=== PATIENT | female | born 1980 | race Caucasian/White ===

== ENCOUNTER 2016-11-12 18:29 | Emergency (ER) | payer OTHER ==
[2016-11-12 18:36] VITALS: BP 105/61; PULSE 91; TEMP 97.3; BMI 30.1
--- NOTE | 2016-11-12 19:44 | PDOC ---
History of Present Illness - History of Present Illness Initial Comments: 11/12/16 20:40 The patient is a 36 year old female, A1, with a significant past medical history of anxiety, depression and hepatitis C, who presents to the emergency department with abdominal pain and vaginal discharge for a few weeks. She states she noticed the clear discharge a few weeks ago but thought it would resolve after her menstrual cycle. She reports completing her menstruation a few days ago, however, reports the discharge has persisted. She states the vaginal discharge is constant all day and foul smelling. She states she feels like she has an STD. She denies chest pain, shortness of breath, headache and dizziness. She denies fever, chills, nausea, vomit, diarrhea and constipation. She denies dysuria, frequency, urgency and hematuria. Allergies: penicillin <Maryam Ang - Last Filed: 11/12/16 20:40> <Margie Bird - Last Filed: 11/12/16 20:50> - General Chief Complaint: Pain Stated Complaint: PELVIC PAIN Time Seen by Provider: 11/12/16 19:09 Past History <Maryam Ang - Last Filed: 11/12/16 20:40> - Past Medical History Liver Disease: Yes (hep c) - Psycho/Social/Smoking Cessation Hx Anxiety: Yes Suicidal Ideation: No Smoking Status: Yes Smoking History: Current every day smoker Number of Cigarettes Smoked Daily: 10 Information on smoking cessation initiated: No <Margie Bird - Last Filed: 11/12/16 20:50> - Past Medical History Allergies/Adverse Reactions: Allergies Allergy/AdvReac Type Severity Reaction Status Date / Time Penicillins Allergy Verified 11/12/16 19:39 Home Medications: Ambulatory Orders Buprenorphine HCl/Naloxone HCl [Suboxone 8 mg-2 mg Sl Tablets] 1 each SL DAILY 11/12/16 Clonazepam [Klonopin] 3 mg PO DAILY 11/12/16 Doxycycline Monohydrate [Monodox] 100 mg PO Q12H #14 capsule 11/12/16 Gabapentin [Neurontin] 600 mg PO DAILY 11/12/16 Review of Systems - Review of Systems Able to Perform ROS?: Yes Comments:: 11/12/16 20:40 CONSTITUTIONAL: Absent: fever, chills, diaphoresis, generalized weakness, malaise, loss of appetite HEENT: Absent: rhinorrhea, nasal congestion, throat pain, throat swelling, difficulty swallowing, mouth swelling, ear pain, eye pain, visual Changes CARDIOVASCULAR: Absent: chest pain, syncope, palpitations, irregular heart rate, lightheadedness , peripheral edema RESPIRATORY: Absent: cough, shortness of breath, dyspnea with exertion, orthopnea, wheezing, stridor, hemoptysis GASTROINTESTINAL: Absent: abdominal pain, abdominal distension, nausea, vomiting, diarrhea, constipation, melena, hematochezia GENITOURINARY: (+) Vaginal discharge for 3 weeks. Absent: dysuria, frequency, urgency, hesitancy, hematuria, flank pain, genital pain MUSCULOSKELETAL: Absent: myalgia, arthralgia, joint swelling SKIN: Absent: rash, itching, pallor HEMATOLOGIC/IMMUNOLOGIC: Absent: easy bleeding, easy bruising, lymphadenopathy, frequent infections ENDOCRINE: Absent: unexplained weight gain, unexplained weight loss, heat intolerance, cold intolerance NEUROLOGIC: Absent: headache, focal weakness or paresthesias, dizziness, unsteady gait, seizure, mental status changes, bladder or bowel incontinence PSYCHIATRIC: Absent: anxiety, depression, suicidal or homicidal ideation, hallucinations. <Maryam Ang - Last Filed: 11/12/16 20:40> *Physical Exam - Vital Signs Last Vital Signs Temp Pulse Resp BP Pulse Ox 97.3 F L 91 H 18 105/61 98 11/12/16 18:32 11/12/16 18:32 11/12/16 18:32 11/12/16 18:32 11/12/16 18:32 - Physical Exam Comments: 11/12/16 20:41 GENERAL: Well developed, well nourished. Awake and alert. No acute distress. HEENT: Normocephalic, atraumatic. PERRLA, EOMI. No conjunctival pallor. Sclera are non- icteric. Moist mucous membranes. Oropharynx is clear. NECK: Supple. Full ROM. No JVD. Carotid pulses 2+ and symmetric, without bruits. No thyromegaly. No lymphadenopathy. CARDIOVASCULAR: Regular rate and rhythm. No murmurs, rubs, or gallops. Distal pulses are 2+ and symmetric. PULMONARY: No evidence of respiratory distress. Lungs clear to auscultation bilaterally. No wheezing, rales or rhonchi. ABDOMINAL: Soft. Non-tender. Non-distended. No rebound or guarding. No organomegaly. Normoactive bowel sounds. MUSCULOSKELETAL Normal range of motion at all joints. No bony deformities or tenderness. No CVA tenderness. EXTREMITIES: No cyanosis. No clubbing. No edema. No calf tenderness. SKIN: Warm and dry. Normal capillary refill. No rashes. No jaundice. NEUROLOGICAL: Alert, awake, appropriate. Cranial nerves 2-12 intact. Normoreflexic in the upper and lower extremities. Normal speech. Toes are down-going bilaterally. Gait is normal without ataxia. PSYCHIATRIC: Cooperative. Good eye contact. Appropriate mood and affect. GYNECOLOGIC EXAM: (+) foul smelling, yellow discharge. No tenderness. Cervix is closed. <Maryam Ang - Last Filed: 11/12/16 20:40> - Vital Signs Last Vital Signs Temp Pulse Resp BP Pulse Ox 97.3 F L 91 H 18 105/61 98 11/12/16 18:32 11/12/16 18:32 11/12/16 18:32 11/12/16 18:32 11/12/16 18:32 <Margie Bird - Last Filed: 11/12/16 20:50> ED Treatment Course - ADDITIONAL ORDERS Additional order review: Laboratory Results 11/12/16 11/12/16 19:55 19:55 Urine Color Yellow Urine Appearance Slcloudy Urine pH 5.0 Ur Specific [place] 1.032 Urine Protein Negative Urine Glucose (UA) Negative Urine Ketones Trace H Urine Blood 1+ H Urine Nitrite Negative Urine Bilirubin Negative Urine Urobilinogen Negative Ur Leukocyte Esterase 2+ H Urine RBC 6 Urine WBC 19 Ur Epithelial Cells Few Urine Bacteria Rare Urine Mucus Few Urine HCG, Qual Negative <Maryam Ang - Last Filed: 11/12/16 20:40> Medical Decision Making - Medical Decision Making 11/12/16 20:43 spoke to patient about her penicillin allergy. She did not have anaphylaxsis and recalls having some rash with penicillin as a child -will not give penicillin but cephalosporin reactions in pts with pcn allergies is very rare . Pt will receive cephalosporin 11/12/16 20:49 pt could not stay tp be observed so the rocephin was cancelled RX doxycycline sent to pharmacy <Margie Bird - Last Filed: 11/12/16 20:50> *DC/Admit/Observation/Transfer - Attestations Scribe Attestion: 11/12/16 20:42 Documentation prepared by Maryam Ang, acting as diagnostic medical sonographer for Margie Bird MD <Maryam Ang - Last Filed: 11/12/16 20:40> <Margie Bird - Last Filed: 11/12/16 20:50> Diagnosis at time of Disposition: Vaginal discharge - Discharge Dispostion Disposition: HOME Condition at time of disposition: Stable - Prescriptions Prescriptions: Doxycycline Monohydrate [Monodox] 100 mg PO Q12H #14 capsule - Referrals Referrals: Dorothy Ibarra [Primary Care Provider] - - Patient Instructions Printed Discharge Instructions: DI for [place]-vaginal Tears, DI for Vaginal Discharge
[2016-11-12 20:06] LABS: URINE APPEARANCE SLCLOUDY; URINE BILIRUBIN NEGATIVE (NEGATIVE); URINE COLOR YELLOW; URINE GLUCOSE (UA) NEGATIVE (NEGATIVE); URINE KETONE TRACE (NEGATIVE); URINE NITRITE NEGATIVE (NEGATIVE); URINE PROTEIN NEGATIVE (NEGATIVE); URINE UROBILINOGEN NEGATIVE E.U./dl (0.2-1.0)
[2016-11-12 20:08] LABS: URINE BLOOD 1+ (NEGATIVE); URINE LEUK ESTERASE 2+ (NEGATIVE)
[2016-11-12 20:13] LABS: URINE BACTERIA RARE /hpf (NONE SEEN); URINE MUCUS FEW; URINE RBC 6 /hpf (0-3); URINE WBC 19 /hpf (3-5)
[2016-11-12] MEDS ORDERED: AZITHROMYCIN 1 GM PACKET PO STA (20:38)
[2016-11-12] MEDS ORDERED: AZITHROMYCIN 250 MG TABLET (FP) ONE (20:41)
== END 2016-11-12 20:49 | disposition home or self-care (01) ==
LOC: JER 18:29
DX: N89.8 Other specified noninflammatory disorders of vagina (principal)
CPT/HCPCS: 36415; 81003; 81015; 84703; 87491; 87591; 99283-25

== ENCOUNTER 2017-03-03 19:42 | Inpatient (IN) | payer OTHER ==
--- NOTE | 2017-03-03 20:09 | HP ---
COWS - Scale Resting Pulse: 0= [place] 80 or Below Sweatin=Flushed/Facial Moisture Restless Observation: 3= Extraneous Movement Pupil Size: 1= Pupils >than Normal Bone or Joint Aches: 2= Severe Diffuse Aches Runny Nose/ Eye Tearin= Runny Nose/Eyes GI Upset > 30mins: 1= Stomach Cramp Tremor Observation: 1= Tremor [place], Not Seen Yawning Observation: 1= 1-2x During Session Anxiety or Irritability: 2=Irritable/Anxious Goose Flesh Skin: 3=Piloerection COWS Score: 18 CIWA Score - CIWA Score Nausea/Vomitin Muscle Tremors: 1-None Visible, but [place] Anxiety: 3 Agitation: 4-Moderately Restless Paroxysmal Sweats: 2 Orientation: 1-Uncertain about Date Tacttile Disturbances: 0-None Auditory Disturbances: 1-Very Mild Visual Disturbances: 2-Mild Sensitivity Headache: 3-Moderate CIWA-Ar Total Score: 19 Admission ROS BHS - HPI Chief Complaint: Withdrawal symptoms Allergies/Adverse Reactions: Allergies Allergy/AdvReac Type Severity Reaction Status Date / Time Fish Containing Products Allergy Verified 03/03/17 20:08 Penicillins Allergy Verified 11/12/16 19:39 History of Present Illness: 36 y.o. woman with a history of alcohol and heroin dependence is here seeking detox. She reports being clean for about 2 years but she relapsed 6 months ago. She was previously here for detox and rehab several years ago. Exam Limitations: No Limitations - Ebola screening Have you traveled outside of the country in the last 21 days: No (N) Have you had contact with anyone from an Ebola affected area: No Do you have a fever: No - Review of Systems Constitutional: Chills, Changes in sleep EENT: reports: Tearing, Nose Congestion Respiratory: reports: Shortness of Breath Cardiac: reports: No Symptoms Reported GI: reports: Diarrhea, Nausea : reports: No Symptoms Reported Musculoskeletal: reports: Back Pain, Neck Pain Integumentary: reports: No Symptoms Reported Neuro: reports: Headache Endocrine: reports: No Symptoms Reported Hematology: reports: No Symptoms Reported Psychiatric: reports: Anxious, Depressed, other Other Systems: Reviewed and Negative Patient History - Patient Medical History Hx Anemia: No Hx Asthma: No Hx Chronic Obstructive Pulmonary Disease (COPD): No Hx Cancer: No Hx Cardiac Disorders: No Hx Congestive Heart Failure: No Hx Hypertension: No Hx Hypercholesterolemia: No Hx Pacemaker: No HX Cerebrovascular Accident: Yes (2014 r/t drug overdose ) Hx Seizures: Yes (3 years ago ) Hx Dementia: No Hx Diabetes: No Hx Gastrointestinal Disorders: No Hx Liver Disease: Yes (Hep c-untreated ) Hx Genitourinary Disorders: No Hx Sexually Transmitted Disorders: Yes (Gonorrhea and chlamydia) Hx Renal Disease (ESRD): No Hx Thyroid Disease: No Hx Human Immunodeficiency Virus (HIV): No (Neg. ) Hx Hepatitis C: Yes (Untreated ) Hx Depression: Yes Hx Suicide Attempt: Yes (2014: overdose) Hx Bipolar Disorder: No Hx Schizophrenia: No - Patient Surgical History Past Surgical History: No - PPD History Previous Implant?: Yes Documented Results: Negative w/o proof PPD to be Administered?: Yes - Reproductive History Patient is a Female of Child Bearing Age (11 -55 yrs old): Yes Last Menstrual Period: 02/09/17 Patient : No - Smoking Cessation Smoking history: Current every day smoker Aproximately how many cigarettes per day: 10 Hx Chewing Tobacco Use: No Initiated information on smoking cessation: Yes 'Breaking Loose' booklet given: 03/03/17 - Substance & Tx. History Hx Alcohol Use: Yes Hx Substance Use: Yes Substance Use Type: Alcohol, Heroin Hx Substance Use Treatment: Yes (Detox: can't recall last admission. Rehab: 2007 ) - Substances Abused Heroin Route: Injection Frequency: Daily Amount used: 15 Age of first use: 19 Date of Last Use: 03/03/17 Alcohol Route: Oral Frequency: Daily Amount used: 1-2 bottles of wine Age of first use: 14 Date of Last Use: 03/03/17 Family Disease History - Family Disease History Family Disease History: Other: Father (Heroin dependent ) Admission Physical Exam BHS - Vital Signs Vital Signs: Last Vital Signs Temp Pulse Resp BP Pulse Ox 96.9 F L 68 16 99/65 03/03/17 20:29 03/03/17 20:29 03/03/17 20:29 03/03/17 20:29 - Physical General Appearance: Yes: Irritable, Anxious HEENTM: Yes: Hearing grossly Normal, Normal Voice Respiratory: Yes: Chest Non-Tender, Lungs Clear, Normal Breath Sounds, No Respiratory Distress, No Accessory Muscle Use Neck: Yes: No masses,lesions,Nodules, Trachea in good position Breast: Yes: Breast Exam Deferred Cardiology: Yes: Regular Rhythm, Regular Rate Abdominal: Yes: Flat, Soft Genitourinary: Yes: Other (DENIES COMPLAINT) Back: Yes: Normal Inspection Musculoskeletal: Yes: Gait Steady, Pelvis Stable, Back pain, Other (NECK PAIN) Extremities: Yes: Normal Inspection, Normal Range of Motion, Non-Tender Neurological: Yes: Alert, Normal Mood/Affect, Normal Response Integumentary: Yes: Dry, Warm, Track [place] Lymphatic: Yes: Within Normal Limits - Diagnostic (1) Alcohol dependence with uncomplicated withdrawal Current Visit: Yes Status: Chronic (2) Opioid dependence with withdrawal Current Visit: Yes Status: Chronic (3) Hepatitis C Current Visit: Yes Status: Chronic (4) Scoliosis Current Visit: Yes Status: Chronic (5) Plantar wart of both feet Current Visit: Yes Status: Acute Cleared for Admission [facility] - Detox or Rehab [facility] Level of Care: Medically Managed Detox Regimen/Protocol: Methadone/Librium BHS Breath Alcohol Content Breath Alcohol Content: 0 Vital Signs - Vital Signs Vital Signs Refused: No Temperature: 96.9 F Temperature Source: Oral Pulse Rate: 68 Respiratory Rate: 16 Blood Pressure: 99/65 BP Location: Left Arm Blood Pressure Position: Sitting - Height Height: 5 ft 3 in - Weight Weight: 185 lb Weight Measurement Method: Standing Scale Body Mass Index (BMI): 32.8 Urine Pregancy Test - Test Device Lot Number: [id number] Expiration Date: 08/23/18 - Control Horizontal Line in Upper Control Window?: Yes - Result Urine Test Results: Negative- NO Line Present Urine Drug Screen - Test Device Lot Number: [id number] Expiration Date: 08/23/18 - Control Is Test Valid: Yes - Results Urine Drug Screen Results: OPI-Opiates, MTD-Methadone, OXY-Oxycodone
[2017-03-03 20:29] VITALS: BMI 32.8
[2017-03-03] MEDS ORDERED: MENTHOL/PHENOL 1 EACH UD MM PRN (20:35)
[2017-03-03] MEDS ORDERED: METHADONE HCL 10 MG TABLET (FOR DETOX USE ONLY) PO ONE ×2 (20:35→23:00)
[2017-03-03] MEDS ORDERED: MAGNESIUM HYDROX 2400MG/30ML ORAL SUSPENSION 30 ML CUP PO PRN (20:35)
[2017-03-03] MEDS ORDERED: MAGNESIUM CITRATE 300 ML BOTTLE PO PRN (20:35)
[2017-03-03] MEDS ORDERED: NICOTINE POLACRILEX 2 MG GUM BC PRN (20:35)
[2017-03-03] MEDS ORDERED: LOPERAMIDE HCL 2 MG CAPSULE PO PRN (20:35)
[2017-03-03] MEDS ORDERED: P-EPHED 60MG/TRIPROLIDI 2.5MG TABLET PO PRN (20:35)
[2017-03-03] MEDS ORDERED: chlordiazePOXIDE HCL 25 MG CAPSULE PO PRN (20:35)
[2017-03-03] MEDS ORDERED: ACETAMINOPHEN 325 MG TABLET (FP) PO PRN (20:35)
[2017-03-03] MEDS ORDERED: IBUPROFEN 400 MG TABLET (FP) PO PRN (20:35)
[2017-03-03] MEDS ORDERED: hydrOXYzine PAMOATE 50 MG CAPSULE (FP) PO PRN (20:35)
[2017-03-03] MEDS ORDERED: diphenhydrAMINE HCL 50 MG CAPSULE PO PRN (20:35)
[2017-03-03] MEDS ORDERED: chlordiazePOXIDE HCL 25 MG CAPSULE PO ONE (20:35)
[2017-03-03] MEDS ORDERED: MAG HYDROX/AL HYDROX/SIMETH 30 ML UNIT-DOSE CUP PO PRN (20:35)
[2017-03-03] MEDS ORDERED: guaiFENesin/D-METHORPHAN HB 10 ML UNIT-DOSE CUPS PO PRN (20:35)
[2017-03-03] MEDS ORDERED: SALICYLIC ACID 1 APPLIC BOTTLE TP ONE (20:37)
[2017-03-03] MEDS: chlordiazePOXIDE HCL 25 MG CAPSULE PO SCH (22:36)
[2017-03-03] MEDS: THIAMINE HCL 100 MG TABLET (FP) PO SCH (22:41)
[2017-03-04] MEDS: chlordiazePOXIDE HCL 25 MG CAPSULE PO SCH ×4 (06:02→22:20)
[2017-03-04] MEDS ORDERED: METHADONE HCL 10 MG TABLET (FOR DETOX USE ONLY) PO SCH (10:00)
[2017-03-04 10:13] LABS: MCH 30.3 pg (25.7-33.7); MCHC 33.5 g/dl (32.0-36.0); MEAN CELL VOLUME 90.7 fl (80-96); MEAN PLT VOLUME 9.6 fl (7.5-11.1); PLATELET COUNT 189 K/MM3 (134-434); RDW 13.4 % (11.6-15.6); WHITE BLOOD COUNT 5.8 K/mm3 (4.0-10.0)
[2017-03-04 10:16] LABS: URINE APPEARANCE SLCLOUDY; URINE BILIRUBIN NEGATIVE (NEGATIVE); URINE BLOOD NEGATIVE (NEGATIVE); URINE COLOR YELLOW; URINE GLUCOSE (UA) NEGATIVE (NEGATIVE); URINE KETONE NEGATIVE (NEGATIVE); URINE NITRITE POSITIVE (NEGATIVE); URINE PROTEIN NEGATIVE (NEGATIVE); URINE UROBILINOGEN NEGATIVE E.U./dl (0.2-1.0)
[2017-03-04 10:22] LABS: URINE LEUK ESTERASE 1+ (NEGATIVE)
[2017-03-04 10:25] LABS: URINE RBC 1 /hpf (0-3); URINE WBC 16 /hpf (3-5)
[2017-03-04 10:26] LABS: URINE BACTERIA MANY /hpf (NONE SEEN); URINE MUCUS RARE
[2017-03-04] MEDS: PRENATAL VITAMINS W/ FOLIC ACID TABLET (FP) PO SCH (10:26)
[2017-03-04] MEDS: NICOTINE 14 MG/24 HOURS TOPICAL PATCH TD SCH (10:27)
[2017-03-04 10:28] LABS: ALBUMIN 3.1 g/dl (3.4-5.0); ANION GAP 8 (8-16); CO2 27 mmol/L (21-32); GLUCOSE,RANDOM 108 mg/dL (74-106)
[2017-03-04 10:32] LABS: ALK PHOS 63 U/L (45-117); BILIRUBIN,TOTAL 0.4 mg/dL (0.2-1.0); CREATININE 0.6 mg/dL (0.55-1.02); SGOT/AST 15 U/L (15-37); SGPT/ALT 16 U/L (12-78); TOT PROT 6.2 g/dl (6.4-8.2)
--- NOTE | 2017-03-04 11:43 | PN ---
[facility] CIWA - CIWA Score Nausea/Vomitin Muscle Tremors: 3 Anxiety: 3 Agitation: 3 Paroxysmal Sweats: 1-Minimal Palms Moist Orientation: 0-Oriented Tacttile Disturbances: 1-Very Mild Itch/Numbness Auditory Disturbances: 1-Very Mild Visual Disturbances: 1-Very Mild Sensitivity Headache: 2-Mild CIWA-Ar Total Score: 18 BHS COWS - Scale Resting Pulse: 1= [place] 81-100 Sweatin= Chills/Flushing Restless Observation: 3= Extraneous Movement Pupil Size: 1= Pupils >than Normal Bone or Joint Aches: 2= Severe Diffuse Aches Runny Nose/ Eye Tearin= Runny Nose/Eyes GI Upset > 30mins: 2= Nausea/Diarrhea Tremor Observation of Outstretched Hands: 2= Slight Tremor Visible Yawning Observation: 1= 1-2x During Session Anxiety or Irritability: 2=Irritable/Anxious Goose Flesh Skin: 0=Smooth Skin COWS Score: 17 S Progress Note (SOAP) Subjective: ALERT,IRRITABLE,ANXIOUS,INTERRUPTED SLEEP,TREMOR,PAIN IN THE BODY AND BACK Objective: 03/04/17 11:41 Vital Signs Temperature 98.2 F 03/04/17 10:52 Pulse Rate 85 03/04/17 10:52 Respiratory Rate 20 03/04/17 10:52 Blood Pressure 113/65 03/04/17 10:52 O2 Sat by Pulse Oximetry (%) EKG NSR,NORMAL ECG Laboratory Last Values WBC 5.8 K/mm3 (4.0-10.0) 03/04/17 08:00 RBC 4.25 M/mm3 (3.60-5.2) 03/04/17 08:00 Hgb 12.9 GM/dL (10.7-15.3) 03/04/17 08:00 Hct 38.6 % (32.4-45.2) 03/04/17 08:00 MCV 90.7 fl (80-96) 03/04/17 08:00 MCHC 33.5 g/dl (32.0-36.0) 03/04/17 08:00 RDW 13.4 % (11.6-15.6) 03/04/17 08:00 Plt Count 189 K/MM3 (134-434) 03/04/17 08:00 MPV 9.6 fl (7.5-11.1) 03/04/17 08:00 Sodium 141 mmol/L (136-145) 03/04/17 08:00 Potassium 3.7 mmol/L (3.5-5.1) 03/04/17 08:00 Chloride 106 mmol/L (98-107) 03/04/17 08:00 Carbon Dioxide 27 mmol/L (21-32) 03/04/17 08:00 Anion Gap 8 (8-16) 03/04/17 08:00 BUN 7 mg/dL (7-18) D 03/04/17 08:00 Creatinine 0.6 mg/dL (0.55-1.02) 03/04/17 08:00 Creat Clearance w eGFR > 60 (>60) 03/04/17 08:00 Random Glucose 108 mg/dL (74-106) H D 03/04/17 08:00 Calcium 8.0 mg/dL (8.5-10.1) L 03/04/17 08:00 Total Bilirubin 0.4 mg/dL (0.2-1.0) D 03/04/17 08:00 AST 15 U/L (15-37) D 03/04/17 08:00 ALT 16 U/L (12-78) D 03/04/17 08:00 Alkaline Phosphatase 63 U/L (45-117) 03/04/17 08:00 Total Protein 6.2 g/dl (6.4-8.2) L 03/04/17 08:00 Albumin 3.1 g/dl (3.4-5.0) L 03/04/17 08:00 Urine Color Yellow 03/04/17 08:00 Urine Appearance Slcloudy 03/04/17 08:00 Urine pH 7.0 (5.0-8.0) D 03/04/17 08:00 Urine Protein Negative (NEGATIVE) 03/04/17 08:00 Urine Glucose (UA) Negative (NEGATIVE) 03/04/17 08:00 Urine Ketones Negative (NEGATIVE) 03/04/17 08:00 Urine Blood Negative (NEGATIVE) 03/04/17 08:00 Urine Nitrite Positive (NEGATIVE) 03/04/17 08:00 Urine Bilirubin Negative (NEGATIVE) 03/04/17 08:00 Urine Urobilinogen Negative E.U./dl (0.2-1.0) 03/04/17 08:00 Ur Leukocyte Esterase 1+ (NEGATIVE) H 03/04/17 08:00 Urine RBC 1 /hpf (0-3) 03/04/17 08:00 Urine WBC 16 /hpf (3-5) 03/04/17 08:00 Ur Epithelial Cells Moderate /hpf (FEW) 03/04/17 08:00 Urine Bacteria Many /hpf (NONE SEEN) 03/04/17 08:00 Urine Mucus Rare 03/04/17 08:00 Assessment: 03/04/17 11:42 WITHDRAWAL SYMPTOM Plan: CONTINUE DETOX
--- NOTE | 2017-03-04 15:44 | EKG ---
Test Reason : Blood Pressure : / mmHG Vent. Rate : 067 BPM Atrial Rate : 067 BPM P-R Int : 114 ms QRS Dur : 090 ms QT Int : 404 ms P-R-T Axes : 025 064 039 degrees QTc Int : 426 ms NORMAL SINUS RHYTHM NORMAL ECG WHEN COMPARED WITH ECG OF 25-APR-2011 13:25, NO SIGNIFICANT CHANGE WAS FOUND Confirmed by DEUCE MELENDEZ MD ([id number]) on 03/04/2017 3:44:24 PM Referred By: Confirmed By:DEUCE MELENDEZ MD
[2017-03-04] MEDS: THIAMINE HCL 100 MG TABLET (FP) PO SCH (22:20)
[2017-03-05] MEDS: chlordiazePOXIDE HCL 25 MG CAPSULE PO SCH ×3 (05:59→17:28)
[2017-03-05] MEDS ORDERED: ESCITALOPRAM OXALATE 20 MG TABLET (FP) PO SCH (10:00)
[2017-03-05] MEDS ORDERED: METHADONE HCL 5 MG TABLET (FOR DETOX USE ONLY) PO SCH (10:00)
[2017-03-05 10:12] VITALS: TEMP 98.1
[2017-03-05] MEDS: PRENATAL VITAMINS W/ FOLIC ACID TABLET (FP) PO SCH (10:47)
[2017-03-05] MEDS: NICOTINE 14 MG/24 HOURS TOPICAL PATCH TD SCH (10:48)
[2017-03-05] MEDS ORDERED: TRIMETHOBENZAMIDE HCL 300 MG CAPSULE PO PRN (11:06)
--- NOTE | 2017-03-05 11:06 | PN ---
[facility] CIWA - CIWA Score Nausea/Vomitin-No Nausea/No Vomiting Muscle Tremors: 4-Moderate,w/Arms Extend Anxiety: 3 Agitation: 4-Moderately Restless Paroxysmal Sweats: 3 Orientation: 0-Oriented Tacttile Disturbances: 0-None Auditory Disturbances: 0-None Visual Disturbances: 0-None Headache: 0-None Present CIWA-Ar Total Score: 14 BHS COWS - Scale Resting Pulse: 1= [place] 81-100 Sweatin=Flushed/Facial Moisture Restless Observation: 1= Difficult to Sit Still Pupil Size: 0= Normal to Room Light Bone or Joint Aches: 2= Severe Diffuse Aches Runny Nose/ Eye Tearin= Runny Nose/Eyes GI Upset > 30mins: 2= Nausea/Diarrhea Tremor Observation of Outstretched Hands: 2= Slight Tremor Visible Yawning Observation: 2= >3x During Session Anxiety or Irritability: 2=Irritable/Anxious Goose Flesh Skin: 0=Smooth Skin COWS Score: 16 S Progress Note (SOAP) Subjective: irritable agitation anxiety body aches muscle spasms sweats shakes nausea Objective: 03/05/17 11:03 Vital Signs Temperature 98.1 F 03/05/17 10:00 Pulse Rate 83 03/05/17 10:00 Respiratory Rate 16 03/05/17 10:00 Blood Pressure 119/72 03/05/17 10:00 O2 Sat by Pulse Oximetry (%) Laboratory Tests 03/04/17 03/04/17 03/04/17 08:00 08:00 08:00 WBC 5.8 RBC 4.25 Hgb 12.9 Hct 38.6 MCV 90.7 MCHC 33.5 RDW 13.4 Plt Count 189 MPV 9.6 Sodium 141 Potassium 3.7 Chloride 106 Carbon Dioxide 27 Anion Gap 8 BUN 7 D Creatinine 0.6 Creat Clearance w eGFR > 60 Random Glucose 108 H D Calcium 8.0 L Total Bilirubin 0.4 D AST 15 D ALT 16 D Alkaline Phosphatase 63 Total Protein 6.2 L Albumin 3.1 L Urine Color Urine Appearance Urine pH Ur Specific [place] Urine Protein Urine Glucose (UA) Urine Ketones Urine Blood Urine Nitrite Urine Bilirubin Urine Urobilinogen Ur Leukocyte Esterase Urine RBC Urine WBC Ur Epithelial Cells Urine Bacteria Urine Mucus RPR Titer Nonreactive 03/04/17 08:00 WBC RBC Hgb Hct MCV MCHC RDW Plt Count MPV Sodium Potassium Chloride Carbon Dioxide Anion Gap BUN Creatinine Creat Clearance w eGFR Random Glucose Calcium Total Bilirubin AST ALT Alkaline Phosphatase Total Protein Albumin Urine Color Yellow Urine Appearance Slcloudy Urine pH 7.0 D Ur Specific [place] 1.015 Urine Protein Negative Urine Glucose (UA) Negative Urine Ketones Negative Urine Blood Negative Urine Nitrite Positive Urine Bilirubin Negative Urine Urobilinogen Negative Ur Leukocyte Esterase 1+ H Urine RBC 1 Urine WBC 16 Ur Epithelial Cells Moderate Urine Bacteria Many Urine Mucus Rare RPR Titer awake/alert ambulating no acute distress Assessment: 03/05/17 11:05 withdrawal sx Plan: continue detox increase fluids flexiril prn motrin prn tigan prn
[2017-03-05] MEDS ORDERED: CYCLOBENZAPRINE HCL 10 MG TABLET (FP) PO PRN (11:07)
--- NOTE | 2017-03-05 11:53 | CONSULT ---
[facility] Psychiatric Consult - Data Date of interview: 03/05/17 Admission source: [facility] Identifying data: This is 36 years old female with psychiatric hospitalization history, intoxicated with: Alcohol, Opioids anf Nicotine Substance Abuse History: - Smoking Cessation. Smoking history: Current every day smoker. Aproximately how many cigarettes per day: 10. Hx Chewing Tobacco Use: No. Initiated information on smoking cessation: Yes. 'Breaking Loose' booklet given: 03/03/17. - Substance & Tx. History. Hx Alcohol Use: Yes. Hx Substance Use: Yes. Substance Use Type: Alcohol, Heroin. Hx Substance Use Treatment: Yes (Detox: can't recall last admission. Rehab: 2007). - Substances Abused. Heroin. Route: Injection. Frequency: Daily. Amount used: 15. Age of first use: 19. Date of Last Use: 03/03/17. Alcohol. Route: Oral. Frequency: Daily. Amount used: 1-2 bottles of wine. Age of first use: 14. Date of Last Use: 03/03/17 Medical History: HepC+, Scoliosis Psychiatric History: Patient reports history of depression with most recent psychiatric asmission at [facility] due to depression on 2017, reports taking prior to admsision: Lexapro 20mg poqd Physical/Sexual Abuse/Trauma History: Denies, unclear Additional Comment: Lexapro 20mg poqd Mental Status Exam - Mental Status Exam Alert and Oriented to: Person Cognitive Function: Fair Patient Appearance: Unkempt Mood: Sad Affect: Flat Patient Behavior: Sedated Speech Pattern: Delayed Voice Loudness: Mildly Soft/Quiet Thought Process: Circumstantial Thought Disorder: Being Controlled Hallucinations: Denies Suicidal Ideation: Denies Homicidal Ideation: Denies Insight/Judgement: Fair Sleep: Difficulty falling asleep Appetite: Weight loss Muscle strength/Tone: Mild Hypotonicity Gait/Station: Shuffling Additional Comments: Lexapro 20mg poqd Psychiatric Findings - Problem List ([place] 1, 2,3) (1) Alcohol dependence with uncomplicated withdrawal Current Visit: Yes Status: Chronic (2) Opioid dependence with withdrawal Current Visit: Yes Status: Chronic (3) Drug-induced mood disorder Current Visit: Yes Status: Acute - Initial Treatment Plan Initial Treatment Plan: Lexapro 20mg poqd
[2017-03-05 14:36] VITALS: BP 110/62; PULSE 78
--- NOTE | 2017-03-05 18:06 | PN ---
S Progress Note Note: patient did not want to continue treatment,seen by counselor,signed release ama, did not want to wait
--- NOTE | 2017-03-05 18:10 | DS ---
[facility] Detox Discharge Summary Admission Date: 03/03/17 Discharge Date: 03/06/17 - History Present History: Alcohol Dependence, Opioid Dependence Additional Comments: patient did not want to complete treatment,did not want to wait,seen by counselor,signed release ama Pertinent Past History: hepatitis c - Physical Exam Results Vital Signs: Vital Signs Temperature 98.1 F 03/05/17 14:35 Pulse Rate 78 03/05/17 14:35 Respiratory Rate 16 03/05/17 14:35 Blood Pressure 110/62 03/05/17 14:35 O2 Sat by Pulse Oximetry (%) Pertinent Admission Physical Exam Findings: withdrawal symptom - Medication Discharge Medications: Ambulatory Orders Clonazepam [Klonopin -] 1 mg PO TID 03/03/17 Escitalopram Oxalate [Lexapro -] 20 mg PO DAILY 03/03/17 Gabapentin [Neurontin -] 200 mg PO Q8H 03/03/17 Escitalopram Oxalate [Lexapro -] 20 mg PO DAILY #30 tablet 03/05/17 - AMA Did Patient Leave Against Medical Advice: Yes
[2017-03-05] MEDS ORDERED: cloNIDine HCL 0.1 MG TABLET PO ONE (18:15)
[2017-03-05] MEDS ORDERED: chlordiazePOXIDE 5 MG CAPSULE PO SCH (23:00)
[2017-03-06] MEDS ORDERED: chlordiazePOXIDE HCL 10 MG CAPSULE PO SCH (23:00)
[2017-03-07] MEDS ORDERED: METHADONE HCL 10 MG TABLET (FOR DETOX USE ONLY) PO SCH (10:00)
[2017-03-08] MEDS ORDERED: METHADONE HCL 5 MG TABLET (FOR DETOX USE ONLY) PO SCH (06:00)
== END 2017-03-05 18:28 | disposition left against medical advice (07) | DRG 770 ==
LOC: YASAS 19:42 → Y6N 20:02
PROVIDERS: ADMIT Internal Medicine; ATTEND Internal Medicine
PROC: HZ2ZZZZ Detoxification Services for Substance Abuse Treatment (ICD-10-PCS; principal; 2017-03-03)
DX: F11.23 Opioid dependence with withdrawal (principal); F10.230 Alcohol dependence with withdrawal, uncomplicated; F19.24 Other psychoactive substance dependence with psychoactive substance-induced mood disorder; B18.2 Chronic viral hepatitis C; M41.9 Scoliosis, unspecified; Z86.73 Personal history of transient ischemic attack (TIA), and cerebral infarction without residual deficits; Z86.69 Personal history of other diseases of the nervous system and sense organs; Z87.42 Personal history of other diseases of the female genital tract; Z91.5 Personal history of self-harm
CPT/HCPCS: 36415; 80053; 81003; 81015; 85027; 86593; 93005; 93010

== ENCOUNTER 2017-06-04 01:36 | Inpatient (IN) | payer OTHER ==
--- NOTE | 2017-06-04 01:58 | HP ---
COWS - Scale Resting Pulse: 1= [place] 81-100 Sweatin=Flushed/Facial Moisture Restless Observation: 1= Difficult to Sit Still Pupil Size: 1= Pupils >than Normal Bone or Joint Aches: 4=Acute Joint/Muscle Pain Runny Nose/ Eye Tearin= Nasal Congestion GI Upset > 30mins: 2= Nausea/Diarrhea Tremor Observation: 2= Slight Tremor Visible Yawning Observation: 0= None Anxiety or Irritability: 2=Irritable/Anxious Goose Flesh Skin: 0=Smooth Skin COWS Score: 16 CIWA Score - CIWA Score Nausea/Vomitin Muscle Tremors: 3 Anxiety: 4-Mod. Anxious/Guarded Agitation: 4-Moderately Restless Paroxysmal Sweats: 2 Orientation: 1-Uncertain about Date Tacttile Disturbances: 0-None Auditory Disturbances: 1-Very Mild Visual Disturbances: 0-None Headache: 4-Moderately Severe CIWA-Ar Total Score: 21 Admission ROS BHS - HPI Chief Complaint: C/O ALCHOLISM AND HEROIN ADDICTION; SEEKING DETOX TXMENT History of Present Illness: 36 Y.O FEMALE WITH ALCOHOLISM AND OPIOID DEPENDENCE ADMITTED FOR DETOX TXMENT. CLIENT IS KNOWN TO [facility]. LAST ADMISSION 02/2017 SIGNED OUT AMA. D/W CLIENT ABOUT ADHERENCE AND COMPLIANCE. CLIENT AGREES TO COMPLETE TXMENT AT THIS TIME. Exam Limitations: No Limitations - Ebola screening Have you traveled outside of the country in the last 21 days: No Have you had contact with anyone from an Ebola affected area: No Do you have a fever: No - Review of Systems Constitutional: Chills, Loss of Appetite, Malaise, Night Sweats EENT: reports: Nose Congestion Respiratory: reports: No Symptoms reported Cardiac: reports: No Symptoms Reported GI: reports: Nausea, Poor Appetite : reports: No Symptoms Reported Musculoskeletal: reports: Joint Pain Integumentary: reports: No Symptoms Reported Neuro: reports: No Symptoms reported Endocrine: reports: No Symptoms Reported Hematology: reports: No Symptoms Reported Psychiatric: reports: Anxious, Depressed Other Systems: Reviewed and Negative Patient History - Patient Medical History Hx Anemia: No Hx Asthma: No Hx Chronic Obstructive Pulmonary Disease (COPD): No Hx Cancer: No Hx Cardiac Disorders: No Hx Congestive Heart Failure: No Hx Hypertension: No Hx Hypercholesterolemia: No Hx Pacemaker: No HX Cerebrovascular Accident: Yes (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 ) Hx Hepatitis C: Yes (Untreated ) Hx Depression: Yes Hx Suicide Attempt: No (accidental overdose) Hx Bipolar Disorder: No Hx Schizophrenia: No - Patient Surgical History Past Surgical History: No Hx Neurologic Surgery: No Hx Cataract Extraction: No Hx Cardiac Surgery: No Hx Lung Surgery: No Hx Breast Surgery: No Hx Breast Biopsy: No Hx Abdominal Surgery: No Hx Appendectomy: No Hx Cholecystectomy: No Hx Genitourinary Surgery: No Hx Section: No Hx Orthopedic Surgery: No Anesthesia Reaction: No - PPD History Previous Implant?: Yes Documented Results: Negative w/proof Implanted On Prior [facility] Admission?: Yes Date: 03/05/17 Results: 0MM PPD to be Administered?: No - Reproductive History Patient is a Female of Child Bearing Age (11 -55 yrs old): Yes Last Menstrual Period: 05/23/17 Patient : No ([facility]) - Smoking Cessation Smoking history: Current every day smoker Have you smoked in the past 12 months: Yes Aproximately how many cigarettes per day: 10 Cigars Per Day: 0 Hx Chewing Tobacco Use: No Initiated information on smoking cessation: Yes 'Breaking Loose' booklet given: 06/04/17 - Substance & Tx. History Hx Alcohol Use: Yes Hx Substance Use: Yes Substance Use Type: Alcohol, Heroin Hx Substance Use Treatment: Yes ([facility]) - Substances Abused HEROIN Route: Injection Frequency: Daily Amount used: 1 BUNDLE Age of first use: 19 Date of Last Use: 06/03/17 WINE/ RUM Route: Oral Frequency: Daily Amount used: 4 CANS/1 PINT Age of first use: 14 Date of Last Use: 06/03/17 Family Disease History - Family Disease History Family Disease History: Other: Father (Heroin dependent ) Admission Physical Exam [facility] - Physical General Appearance: Yes: Appropriately Dressed, Mild Distress, Tremorous, Other (KNODDING OFF) HEENTM: Yes: EOMI, Normocephalic, Normal Voice, ALY, Pharynx Normal Respiratory: Yes: Chest Non-Tender, Lungs Clear, Normal Breath Sounds, No Respiratory Distress, No Accessory Muscle Use Neck: Yes: No masses,lesions,Nodules, Supple, Trachea in good position Breast: Yes: Breast Exam Deferred Cardiology: Yes: Regular Rhythm, S1, S2, Tachycardia Abdominal: Yes: Normal Bowel Sounds, Non Tender, Soft Genitourinary: Yes: Within Normal Limits Back: Yes: Normal Inspection Musculoskeletal: Yes: full range of Motion, Gait Steady Extremities: Yes: Normal Range of Motion, Non-Tender, Tremors Neurological: Yes: Fully Oriented, Motor Strength 5/5 Integumentary: Yes: Warm, Moist Lymphatic: Yes: Within Normal Limits - Diagnostic (1) Alcohol dependence with uncomplicated withdrawal Current Visit: Yes Status: Chronic (2) Opioid dependence with withdrawal Current Visit: Yes Status: Chronic (3) Nicotine dependence Current Visit: Yes Status: Chronic Qualifiers: Nicotine product type: cigarettes Substance use status: uncomplicated Qualified Code(s): F17.210 - Nicotine dependence, cigarettes, uncomplicated Cleared for Admission S - Detox or Rehab [facility] Level of Care: Medically Managed Detox Regimen/Protocol: Methadone/Librium BHS Breath Alcohol Content Breath Alcohol Content: 0 Vital Signs - Vital Signs Vital Signs Refused: No Temperature: 99.7 F Temperature Source: Oral Pulse Rate: 95 Respiratory Rate: 20 Blood Pressure: 92/52 BP Location: Left Arm Blood Pressure Position: Sitting - Height Height: 5 ft 3 in - Weight Weight: 78.471 kg Weight Measurement Method: Standing Scale Body Mass Index (BMI): 30.6 Urine Pregancy Test - Test Device Lot Number: [id number] Expiration Date: 12/22/18 - Control Horizontal Line in Upper Control Window?: Yes - Result Urine Test Results: Negative- NO Line Present Urine Drug Screen - Test Device Lot Number: [id number] Expiration Date: 02/21/19 - Control Is Test Valid: Yes - Results Drug Screen Negative: No Urine Drug Screen Results: OPI-Opiates
[2017-06-04 02:08] VITALS: BMI 30.6
[2017-06-04] MEDS ORDERED: MAGNESIUM HYDROX 2400MG/30ML ORAL SUSPENSION 30 ML CUP PO PRN (02:13)
[2017-06-04] MEDS ORDERED: P-EPHED 60MG/TRIPROLIDI 2.5MG TABLET PO PRN (02:13)
[2017-06-04] MEDS ORDERED: ACETAMINOPHEN 325 MG TABLET (FP) PO PRN (02:13)
[2017-06-04] MEDS ORDERED: NICOTINE POLACRILEX 2 MG GUM BC PRN (02:13)
[2017-06-04] MEDS ORDERED: METHADONE HCL 10 MG TABLET (FOR DETOX USE ONLY) PO ONE ×3 (02:13→22:00)
[2017-06-04] MEDS ORDERED: IBUPROFEN 400 MG TABLET (FP) PO PRN (02:13)
[2017-06-04] MEDS ORDERED: guaiFENesin/D-METHORPHAN HB 10 ML UNIT-DOSE CUPS PO PRN (02:13)
[2017-06-04] MEDS ORDERED: diphenhydrAMINE HCL 50 MG CAPSULE PO PRN (02:13)
[2017-06-04] MEDS ORDERED: MENTHOL/PHENOL 1 EACH UD MM PRN (02:13)
[2017-06-04] MEDS ORDERED: MAGNESIUM CITRATE 300 ML BOTTLE PO PRN (02:13)
[2017-06-04] MEDS ORDERED: chlordiazePOXIDE HCL 25 MG CAPSULE PO PRN (02:13)
[2017-06-04] MEDS ORDERED: LOPERAMIDE HCL 2 MG CAPSULE PO PRN (02:13)
[2017-06-04] MEDS ORDERED: MAG HYDROX/AL HYDROX/SIMETH 30 ML UNIT-DOSE CUP PO PRN (02:13)
[2017-06-04] MEDS: chlordiazePOXIDE HCL 25 MG CAPSULE PO SCH ×4 (06:15→22:17)
--- NOTE | 2017-06-04 08:34 | CONSULT ---
[facility] Psychiatric Consult - Data Date of interview: 06/04/17 Admission source: [facility] Identifying data: This is 36 years old female with psychiatic hospitalization history intoxicated with: Alcohol, Opioids and Nicotine Substance Abuse History: Smoking history: Current every day smoker. Have you smoked in the past 12 months: Yes. Aproximately how many cigarettes per day: 10. Cigars Per Day: 0. Hx Chewing Tobacco Use: No. Initiated information on smoking cessation: Yes. 'Breaking Loose' booklet given: 06/04/17. - Substance & Tx. History. Hx Alcohol Use: Yes. Hx Substance Use: Yes. Substance Use Type : Alcohol, Heroin. Hx Substance Use Treatment: Yes ([facility]). - Substances Abused. HEROIN. Route: Injection. Frequency: Daily. Amount used: 1 BUNDLE. Age of first use: 19. Date of Last Use: 06/03/17. WINE/ RUM. Route: Oral. Frequency: Daily. Amount used: 4 CANS/1 PINT. Age of first use: 14. Date of Last Use: 06/03/17 Medical History: HepC+, Scoliosis Psychiatric History: Brooke borrero reports history of anxiety and depression, reports most rceent psychiatrioc admission on 2017 at [facility] due to depression. Reports taking prior to admission: Gabapentin 600mg po tid. Wellbutrin XR 150mg poqd Physical/Sexual Abuse/Trauma History: Denies Additional Comment: Gabapentin 600mg po tid. Wellbutrin XR 150mg poqd Mental Status Exam - Mental Status Exam Alert and Oriented to: Person Cognitive Function: Fair Patient Appearance: Unkempt Mood: Sad Affect: Flat Patient Behavior: Sedated Speech Pattern: Delayed Voice Loudness: Mildly Soft/Quiet Thought Process: Circumstantial Thought Disorder: Being Controlled Hallucinations: Denies Suicidal Ideation: Denies Homicidal Ideation: Denies Insight/Judgement: Fair Sleep: Difficulty falling asleep Appetite: Fair Muscle strength/Tone: Mild Hypotonicity Gait/Station: Shuffling Additional Comments: Gabapentin 600mg po tid. Wellbutrin XR 150mg poqd Psychiatric Findings - Problem List ([place] 1, 2,3) (1) Alcohol dependence with uncomplicated withdrawal Current Visit: Yes Status: Chronic (2) Nicotine dependence Current Visit: Yes Status: Chronic Qualifiers: Nicotine product type: cigarettes Substance use status: uncomplicated Qualified Code(s): F17.210 - Nicotine dependence, cigarettes, uncomplicated (3) Opioid dependence with withdrawal Current Visit: Yes Status: Chronic (4) Drug-induced mood disorder Current Visit: No Status: Acute - Initial Treatment Plan Initial Treatment Plan: Gabapentin 600mg po tid. Wellbutrin XR 150mg poqd
[2017-06-04] MEDS ORDERED: ESCITALOPRAM OXALATE 20 MG TABLET (FP) PO SCH (10:00)
[2017-06-04] MEDS ORDERED: GABAPENTIN 400 MG CAPSULE (FP) PO SCH (10:00)
[2017-06-04 10:14] LABS: MCH 30.2 pg (25.7-33.7); MCHC 33.6 g/dl (32.0-36.0); MEAN CELL VOLUME 89.6 fl (80-96); MEAN PLT VOLUME 8.4 fl (7.5-11.1); PLATELET COUNT 212 K/MM3 (134-434); RDW 13.2 % (11.6-15.6); WHITE BLOOD COUNT 5.4 K/mm3 (4.0-10.0)
[2017-06-04 10:37] LABS: ALK PHOS 62 U/L (45-117); ANION GAP 8 (8-16); BILIRUBIN,TOTAL 0.6 mg/dL (0.2-1.0); CALCIUM 8.5 mg/dL (8.5-10.1); CO2 29 mmol/L (21-32); CREATININE 0.6 mg/dL (0.55-1.02); GLUCOSE,RANDOM 105 mg/dL (74-106); SGOT/AST 13 U/L (15-37); SGPT/ALT 15 U/L (12-78); TOT PROT 6.5 g/dl (6.4-8.2)
--- NOTE | 2017-06-04 11:16 | PN ---
S CIWA - CIWA Score Nausea/Vomitin-No Nausea/No Vomiting Muscle Tremors: 4-Moderate,w/Arms Extend Anxiety: 3 Agitation: 3 Paroxysmal Sweats: 3 Orientation: 0-Oriented Tacttile Disturbances: 0-None Auditory Disturbances: 0-None Visual Disturbances: 0-None Headache: 0-None Present CIWA-Ar Total Score: 13 BHS COWS - Scale Resting Pulse: 1= [place] 81-100 Sweatin=Flushed/Facial Moisture Restless Observation: 1= Difficult to Sit Still Pupil Size: 0= Normal to Room Light Bone or Joint Aches: 1= Mild Discomfort Runny Nose/ Eye Tearin= Runny Nose/Eyes GI Upset > 30mins: 0= None Tremor Observation of Outstretched Hands: 2= Slight Tremor Visible Yawning Observation: 2= >3x During Session Anxiety or Irritability: 1=Feels Anxious/Irritable Goose Flesh Skin: 0=Smooth Skin COWS Score: 12 S Progress Note (SOAP) Subjective: sweats tired interrupted sleep agitation body aches Objective: 06/04/17 11:15 Vital Signs Temperature 97.3 F L 06/04/17 10:00 Pulse Rate 88 06/04/17 10:00 Respiratory Rate 16 06/04/17 10:00 Blood Pressure 103/55 06/04/17 10:00 O2 Sat by Pulse Oximetry (%) Laboratory Tests 06/04/17 06/04/17 07:00 07:00 WBC 5.4 RBC 3.83 Hgb 11.6 D Hct 34.4 MCV 89.6 MCH 30.2 MCHC 33.6 RDW 13.2 Plt Count 212 MPV 8.4 D Sodium 138 Potassium 3.6 Chloride 101 Carbon Dioxide 29 Anion Gap 8 BUN 6 L Creatinine 0.6 Creat Clearance w eGFR > 60 Random Glucose 105 Calcium 8.5 Total Bilirubin 0.6 D AST 13 L ALT 15 Alkaline Phosphatase 62 Total Protein 6.5 Albumin 3.0 L rest of labs pending awake/alert ambulating no acute distress Assessment: 06/04/17 11:15 withdrawal sx Plan: continue detox increase fluids
[2017-06-04] MEDS: PRENATAL VITAMINS W/ FOLIC ACID TABLET (FP) PO SCH (12:59)
[2017-06-04] MEDS: GABAPENTIN 300 MG CAPSULE (FP) PO SCH ×2 (13:00→22:16)
[2017-06-04] MEDS: NICOTINE 14 MG/24 HOURS TOPICAL PATCH TD SCH (13:03)
[2017-06-04] MEDS: THIAMINE HCL 100 MG TABLET (FP) PO SCH (22:16)
--- NOTE | 2017-06-04 23:17 | EKG ---
Test Reason : Blood Pressure : / mmHG Vent. Rate : 085 BPM Atrial Rate : 085 BPM P-R Int : 100 ms QRS Dur : 086 ms QT Int : 354 ms P-R-T Axes : 020 067 048 degrees QTc Int : 421 ms SINUS RHYTHM WITH SHORT AL OTHERWISE NORMAL ECG WHEN COMPARED WITH ECG OF 03-MAR-2017 20:29, NO SIGNIFICANT CHANGE WAS FOUND Confirmed by CHIN OMER MD ([id number]) on 06/04/2017 11:17:01 PM Referred By: Confirmed By:CHIN OMER MD
[2017-06-05] MEDS: chlordiazePOXIDE HCL 25 MG CAPSULE PO SCH ×4 (06:36→22:05)
[2017-06-05] MEDS ORDERED: METHADONE HCL 5 MG TABLET (FOR DETOX USE ONLY) PO SCH (10:00)
[2017-06-05] MEDS: GABAPENTIN 300 MG CAPSULE (FP) PO SCH ×2 (10:30→22:05)
[2017-06-05] MEDS: PRENATAL VITAMINS W/ FOLIC ACID TABLET (FP) PO SCH (10:30)
[2017-06-05] MEDS: NICOTINE 14 MG/24 HOURS TOPICAL PATCH TD SCH (10:30)
--- NOTE | 2017-06-05 11:23 | PN ---
S CIWA - CIWA Score Nausea/Vomitin Muscle Tremors: 4-Moderate,w/Arms Extend Anxiety: 4-Mod. Anxious/Guarded Agitation: 4-Moderately Restless Paroxysmal Sweats: 3 Orientation: 0-Oriented Tacttile Disturbances: 0-None Auditory Disturbances: 0-None Visual Disturbances: 0-None Headache: 0-None Present CIWA-Ar Total Score: 18 BHS COWS - Scale Resting Pulse: 1= [place] 81-100 Sweatin= Chills/Flushing Restless Observation: 1= Difficult to Sit Still Pupil Size: 1= Pupils >than Normal Bone or Joint Aches: 1= Mild Discomfort Runny Nose/ Eye Tearin= Nasal Congestion GI Upset > 30mins: 2= Nausea/Diarrhea Tremor Observation of Outstretched Hands: 2= Slight Tremor Visible Yawning Observation: 1= 1-2x During Session Anxiety or Irritability: 2=Irritable/Anxious Goose Flesh Skin: 3=Piloerection COWS Score: 16 BHS Progress Note (SOAP) Subjective: nasuea, sweats, interrupted sleep, anxiety, tremors Objective: 06/05/17 11:22 Vital Signs - 8 hr 06/05/17 06/05/17 06/05/17 03:30 06:56 10:32 Temperature 98.2 F 98.1 F Pulse Rate 67 94 H Respiratory 18 18 18 Rate Blood Pressure 106/67 137/75 Laboratory Tests 06/04/17 06/04/17 06/04/17 07:00 07:00 07:00 WBC 5.4 RBC 3.83 Hgb 11.6 D Hct 34.4 MCV 89.6 MCH 30.2 MCHC 33.6 RDW 13.2 Plt Count 212 MPV 8.4 D u/a pending Sodium 138 Potassium 3.6 Chloride 101 Carbon Dioxide 29 Anion Gap 8 BUN 6 L Creatinine 0.6 Creat Clearance w eGFR > 60 Random Glucose 105 Calcium 8.5 Total Bilirubin 0.6 D AST 13 L ALT 15 Alkaline Phosphatase 62 Total Protein 6.5 Albumin 3.0 L RPR Titer Nonreactive u/a pending Assessment: 06/05/17 11:22 withdrawal sx Plan: cont detox, fluid, u/a
[2017-06-05 15:48] LABS: URINE APPEARANCE CLOUDY; URINE BILIRUBIN NEGATIVE (NEGATIVE); URINE BLOOD 1+ (NEGATIVE); URINE COLOR AMBER; URINE GLUCOSE (UA) NEGATIVE (NEGATIVE); URINE KETONE TRACE (NEGATIVE); URINE NITRITE POSITIVE (NEGATIVE); URINE PROTEIN NEGATIVE (NEGATIVE)
[2017-06-05 15:49] LABS: URINE LEUK ESTERASE 3+ (NEGATIVE)
[2017-06-05 17:19] LABS: CALCIUM OXALATE CRYSTALS FEW /hpf (NONE SEEN); URINE BACTERIA RARE /hpf (NONE SEEN); URINE MUCUS MANY; URINE RBC 7 /hpf (0-3); URINE WBC 81 /hpf (3-5)
[2017-06-05] MEDS: THIAMINE HCL 100 MG TABLET (FP) PO SCH (22:05)
[2017-06-06] MEDS: chlordiazePOXIDE 5 MG CAPSULE PO SCH ×2 (06:42→10:22)
[2017-06-06] MEDS ORDERED: METHADONE HCL 5 MG TABLET (FOR DETOX USE ONLY) PO SCH (10:00)
[2017-06-06] MEDS: PRENATAL VITAMINS W/ FOLIC ACID TABLET (FP) PO SCH (10:19)
[2017-06-06] MEDS: GABAPENTIN 300 MG CAPSULE (FP) PO SCH (10:22)
[2017-06-06] MEDS: NICOTINE 14 MG/24 HOURS TOPICAL PATCH TD SCH (10:24)
[2017-06-06 11:50] VITALS: BP 115/73; PULSE 93; TEMP 98.2
--- NOTE | 2017-06-06 11:51 | PN ---
BHS Progress Note Note: pt refused to complete detox. pt states she will go to a methadone program for maintenance. pt signed out AMA.
--- NOTE | 2017-06-06 11:52 | DS ---
[facility] Detox Discharge Summary Admission Date: 06/04/17 - History Present History: Alcohol Dependence, Opioid Dependence - Physical Exam Results Vital Signs: Vital Signs Temperature 98.2 F 06/06/17 10:00 Pulse Rate 93 H 06/06/17 10:00 Respiratory Rate 18 06/06/17 10:00 Blood Pressure 115/73 06/06/17 10:00 O2 Sat by Pulse Oximetry (%) - Medication Discharge Medications: Ambulatory Orders Clonazepam [Klonopin -] 1 mg PO TID 03/03/17 Escitalopram Oxalate [Lexapro -] 20 mg PO DAILY 03/03/17 Gabapentin [Neurontin -] 200 mg PO BID 03/03/17 Escitalopram Oxalate [Lexapro -] 20 mg PO DAILY #30 tablet 06/04/17 Gabapentin 300 mg PO BID 30 Days 06/04/17 - Diagnosis (1) Alcohol dependence with uncomplicated withdrawal Current Visit: Yes Status: Chronic (2) Nicotine dependence Current Visit: Yes Status: Chronic Qualifiers: Nicotine product type: cigarettes Substance use status: uncomplicated Qualified Code(s): F17.210 - Nicotine dependence, cigarettes, uncomplicated (3) Opioid dependence with withdrawal Current Visit: Yes Status: Chronic (4) Hepatitis C Current Visit: No Status: Chronic Qualifiers: Viral hepatitis chronicity: chronic Hepatic coma status: without hepatic coma Qualified Code(s): B18.2 - Chronic viral hepatitis C - AMA Did Patient Leave Against Medical Advice: Yes (going to a [facility] )
[2017-06-07] MEDS ORDERED: chlordiazePOXIDE HCL 10 MG CAPSULE PO SCH (05:00)
[2017-06-08] MEDS ORDERED: METHADONE HCL 10 MG TABLET (FOR DETOX USE ONLY) PO SCH (10:00)
[2017-06-09] MEDS ORDERED: METHADONE HCL 10 MG TABLET (FOR DETOX USE ONLY) PO SCH (06:00)
== END 2017-06-06 11:05 | disposition left against medical advice (07) | DRG 770 ==
LOC: YASAS 01:36 → Y6N 02:06
PROVIDERS: ADMIT Internal Medicine; ATTEND Internal Medicine
PROC: HZ2ZZZZ Detoxification Services for Substance Abuse Treatment (ICD-10-PCS; principal; 2017-06-04)
DX: F11.23 Opioid dependence with withdrawal (principal); F10.230 Alcohol dependence with withdrawal, uncomplicated; F17.210 Nicotine dependence, cigarettes, uncomplicated; F19.24 Other psychoactive substance dependence with psychoactive substance-induced mood disorder; B18.2 Chronic viral hepatitis C
CPT/HCPCS: 36415; 80053; 81003; 81015; 85027; 86593; 93005; 93010

== ENCOUNTER 2019-04-03 07:54 | Inpatient (IN) | payer OTHER ==
--- NOTE | 2019-04-03 08:19 | HP ---
Admitting History and Physical - Admission Chief Complaint: left hip osteoarthritis x years History of Present Illness: 38 year old female presents in regard to their left hip. Longstanding history of left hip osteoarthritis. Patient complains of pain, limited ROM, difficulty ambulating and difficulty completing ADLs. Patient has failed conservative treatment measures including PO medications, injections, exercise programs and activity modification. At this point, patient wishes to proceed with surgical intervention, a left total hip arthroplasty - MAKOplasty. History Source: Patient - Past Medical History SOCIAL ECONOMIST: Yes: Peripheral Neuropathy ...LMP: 05/23/17 Infectious Disease: Yes: Other (HEP C) Psych: Yes: Anxiety, Depression - Past Surgical History Additional Past Surgical History: See written history & physical. - Smoking History Smoking history: Current every day smoker Have you smoked in the past 12 months: Yes Aproximately how many cigarettes per day: 10 - Alcohol/Substance Use Hx Alcohol Use: Yes Home Medications - Allergies Allergies/Adverse Reactions: Allergies Allergy/AdvReac Type Severity Reaction Status Date / Time Fish Containing Products Allergy Intermediate Rash Verified 03/25/19 12:03 Penicillins Allergy Intermediate Rash Verified 03/25/19 12:04 - Home Medications Home Medications: Ambulatory Orders clonazePAM [Klonopin -] 1 mg PO TID 03/03/17 Escitalopram Oxalate [Lexapro -] 20 mg PO DAILY #30 tablet 06/04/17 Buprenorphine HCl [Subutex -] 8 mg SL BID 03/25/19 Family Disease History - Family Disease History Family Disease History: Other: Father (Heroin dependent ) Review of Systems - Review of Systems Musculoskeletal: reports: Decreased ROM (left hip), Joint Pain (left hip) Physical Examination Constitutional: Yes: Well Nourished, No Distress Eyes: Yes: Conjunctiva Clear HENT: Yes: Atraumatic Neck: Yes: Supple Cardiovascular: Yes: Regular Rate and Rhythm Respiratory: Yes: Regular Gastrointestinal: Yes: Soft ...Rectal Exam: Yes: Deferred Musculoskeletal: Yes: Joint Stiffness (left hip) Assessment/Plan 38 year old female presents in regard to their left hip. Longstanding history of left hip osteoarthritis. Patient complains of pain, limited ROM, difficulty ambulating and difficulty completing ADLs. Patient has failed conservative treatment measures including PO medications, injections, exercise programs and activity modification. At this point, patient wishes to proceed with surgical intervention, a left total hip arthroplasty - MAKOplasty. Pros, cons, risks benefits and alternatives of a left total hip arthroplasty, MAKOplasty were discussed with the patient at length. Patient confirms their understanding and consents to proceed with a left total hip arthroplasty, MAKOplasty.
[2019-04-03] MEDS ORDERED: PANTOPRAZOLE 40 MG TABLET (FP) ONE (08:35)
[2019-04-03] MEDS ORDERED: oxyCODONE HCL 10 MG SUSTAINED ACTING TABLET ONE (08:35)
[2019-04-03] MEDS ORDERED: GABAPENTIN 300 MG CAPSULE (FP) ONE (08:36)
[2019-04-03] MEDS ORDERED: CELECOXIB 200 MG CAPSULE ONE (08:36)
[2019-04-03 08:54] VITALS: BMI 30.2
[2019-04-03] MEDS ORDERED: MIDAZOLAM HCL 2 MG/2 ML SINGLE DOSE VIAL ONE ×2 (09:15→10:22)
[2019-04-03] MEDS ORDERED: BUPIVACAINE HCL/PF (5 MG/ML) 30 ML VIAL IJ ONE (09:16)
[2019-04-03] MEDS ORDERED: LIDOCAINE 1% P/F 10 MG/ML VIAL ONE (09:19)
[2019-04-03] MEDS ORDERED: PROPOFOL 20 ML ONE ×7 (10:19)
[2019-04-03] MEDS ORDERED: ceFAZolin SODIUM 1 GM VIAL ONE ×2 (10:36)
[2019-04-03] MEDS ORDERED: PANTOPRAZOLE 40 MG TABLET (FP) PO ONE (11:00)
[2019-04-03] MEDS ORDERED: GABAPENTIN 300 MG CAPSULE (FP) PO ONE (11:00)
[2019-04-03] MEDS ORDERED: TRANEXAMIC ACID 1000 MG/10 ML VIAL IVPUSH ONE ×2 (11:00→12:07)
[2019-04-03] MEDS ORDERED: oxyCODONE HCL 10 MG SUSTAINED ACTING TABLET PO ONE (11:00)
[2019-04-03] MEDS ORDERED: ROPIVICAINE 0.2%/MORPH PF/KETOROLAC - 51ML DISP.SYRINGE IA ONE ×3 (11:00→12:48)
[2019-04-03] MEDS ORDERED: CELECOXIB 200 MG CAPSULE PO ONE (11:00)
[2019-04-03] MEDS ORDERED: CEFAZOLIN 2 GM in DEXTROSE 5%-WATER - 50 ML IVPB ONE (11:00)
[2019-04-03] MEDS ORDERED: VANCOMYCIN 1,000 MG VIAL (RESTRICTED TO ID ONLY) IVPB ONE (12:07)
[2019-04-03] MEDS ORDERED: PROMETHAZINE HCL 25 MG/1 ML VIAL IVPUSH PRN (13:13)
[2019-04-03] MEDS ORDERED: ONDANSETRON 4 MG/2 ML VIAL IVPUSH PRN ×2 (13:13→13:59)
[2019-04-03] MEDS ORDERED: ACETAMINOPHEN 1000 MG/100 ML VIAL (NON FORMULARY) IVPB ONE ×2 (13:13→14:07)
[2019-04-03] MEDS ORDERED: KETOROLAC TROMETHAMINE 30 MG/1 ML VIAL ONE (13:24)
[2019-04-03] MEDS: KETOROLAC TROMETHAMINE 30 MG/1 ML VIAL IVPUSH SCH ×2 (13:35→20:24)
[2019-04-03] MEDS ORDERED: traMADol HCL 50 MG TABLET ONE (13:47)
[2019-04-03] MEDS: traMADol HCL 50 MG TABLET PO SCH ×2 (13:50→20:23)
[2019-04-03] MEDS ORDERED: MAGNESIUM HYDROX 2400MG/30ML ORAL SUSPENSION 30 ML CUP PO PRN (13:59)
[2019-04-03] MEDS ORDERED: MAG HYDROX/AL HYDROX/SIMETH 30 ML UNIT-DOSE CUP PO PRN (13:59)
[2019-04-03] MEDS ORDERED: LACTATED RINGERS SOLUTION 1,000 ML IV SCH (14:00)
[2019-04-03] MEDS: oxyCODONE HCL 5 MG TABLET PO PRN ×3 (14:15→22:30)
--- NOTE | 2019-04-03 14:24 | OP ---
Operative Note - Note: Operative Date: 04/03/19 Pre-Operative Diagnosis: Left hip AVN/OA Operation: left ANATOLY Post-Operative Diagnosis: Same as Pre-op Surgeon: Titi Bahena Tool Drawing Checker: Rosa Maria Reyes Anesthesia: Spinal Estimated Blood Loss (mls): 200
[2019-04-03] MEDS ORDERED: oxyCODONE HCL 5 MG TABLET PO PRN (14:26)
[2019-04-03] MEDS: clonazePAM 0.5 MG TABLET PO SCH ×2 (14:50→22:29)
--- NOTE | 2019-04-03 15:14 | SPEC ---
DATE OF OPERATION: 04/03/2019 PREOPERATIVE DIAGNOSIS: Left hip osteoarthritis. POSTOPERATIVE DIAGNOSIS: Left hip osteoarthritis. PROCEDURE: Left total hip replacement with MAKOplasty robotic navigation. ATTENDING: Gema Dave MD EMBEDDED SOFTWARE DEVELOPMENT ENGINEER: JOHANNA Trivedi ANESTHESIA: Spinal plus sedation. ESTIMATED BLOOD LOSS: 200 mL. COMPLICATIONS: None. DISPOSITION: The patient was transferred to the PACU in stable condition. IMPLANTS USED: [place] Accolade II size 4 femoral component, Maribel Trident II 54-mm acetabular component, with 30 and 20 mm acetabular screws, MDM bipolar head ball and liner with inner ceramic 0 mm offset head ball. INDICATIONS: This is a 38-year-old female who presented to the office complaining of severe left hip pain. She was seen and examined by Dr. 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 This was late stage and had led to collapse of the femoral head, which then lost its normal spherical shape, leading to severe arthritis. The patient had been treated by another orthopedist with conservative measures but continued to have severe pain and ambulatory dysfunction. She was therefore indicated for a left total hip replacement. The risks, benefits and alternatives to the procedure were explained to the patient in great detail and she elected to proceed with surgery. On the day of surgery, the patient was taken to the operating room and placed on the OR table. Spinal anesthesia was administered by the anesthesiologist. The patient was then positioned in the lateral decubitus position on the table and all bony prominences were padded. An axillary roll was placed. The operative hip was then prepped and draped in the usual sterile fashion and intravenous antibiotics were given for infection prophylaxis. A surgical time-out was then performed with the team, and the patients identity, procedure, side, availability of implants, and the administration of antibiotics were confirmed. An approximately 15-cm longitudinal incision was made through the skin centered on the greater trochanter of the hip. This dissection was carried down through the subcutaneous tissues to the deep fascia. This fascia was then incised and a Cobra was placed around the inferior femoral neck. Electrocautery was used to reflect the anterior 40% of the gluteus medius and minimus starting at the musculotendinous junction and leaving a cuff for closure. This was reflected to reveal the capsule of the hip joint. An anterior capsulectomy was performed and the femoral head and neck were visualized. Grade 4 changes were noted diffusely throughout the joint. At this point, three small stab incisions were made superior to the main incision along the iliac crest. Three self-drilling Steinmann pins were then placed and the [employer] pelvic array was attached. Reference points on the limb were then entered into the robotic device and the limb length deficiency, offset, and femoral neck resection level were then calculated by the software. The hip was then dislocated with traction and external rotation. An oscillating saw was used to make the femoral neck cut at the level previously templated, and the femoral head was removed. Attention was then turned to the acetabulum. Retractors were then placed around the acetabulum and the labrum was removed. An acetabular checkpoint pin and the [employer] software were used to register the contours of the acetabulum. The acetabulum was then reamed in a single stage to the preoperatively templated size using the [employer] robotic arm. The appropriately sized cup was then impacted and had solid fixation as well as the preset inclination and version of 40 and 20 degrees, respectively. A polyethylene liner was then placed in the cup. Attention was then turned back to the femur, which was externally rotated for improved visualization. A femoral neck elevator was used to present the femoral neck cut, a box osteotome was used to enter the femoral canal, and a canal finder was used to go down the femoral shaft. The Srinivasa broaches were used sequentially until the optimal scratch fit was achieved. This correlated with the preoperatively templated size. From here, several different offset head and neck configurations were tested until excellent stability and length were obtained. These measurements were quantified using the [employer] software. All trial components were then removed, the femur was copiously irrigated, and the final components were placed. Leg length and stability were checked again and found to be excellent. Irrigation was performed again. Wound closure was started by repairing the abductor muscles with a no. 2 FiberWire stitch in a Krackow configuration passed through bone tunnels in the greater trochanter and tied over a bony bridge. This repair was then reinforced with a 0 V-Loc 180 barbed suture. Next, no. 1 Polysorb and 0 V-Loc 180 were used to close the fascia. The deep subcutaneous tissue was closed with no. 1 Polysorb sutures, and 2-0 Polysorb was used for the superficial subcutaneous tissue. The skin was closed using both 3-0 V-Loc 90 suture in a running subcuticular fashion and SwiftSet skin adhesive. The Srinivasa array and pins were removed from the iliac crest and the stab incision sites were irrigated and closed with 4-0 Polysorb sutures and SwiftSet skin adhesive. Once this was completed, a sterile dressing was applied. The patient was then awakened and taken to the PACU in stable condition. ADDENDUM: After final implants were placed, a 3-minute dilute Betadine lavage was performed. Following this, the wound was again thoroughly irrigated with normal saline containing Ancef, and wound closure was begun. GEMA DAVE M.D. [id number]
[2019-04-03] MEDS: CEFAZOLIN 2 GM/D5W 2 GM/50 ML ML IVPB SCH (17:36)
[2019-04-03] MEDS ORDERED: DEXAMETHASONE SOD PHOSPHATE 10 MG/1 ML VIAL IVPB ONE (20:00)
[2019-04-03] MEDS: ACETAMINOPHEN 325 MG TABLET (FP) PO SCH (20:25)
[2019-04-03] MEDS ORDERED: BUPRENORPHINE HCL 8 MG TAB.SUBL SL SCH (22:00)
[2019-04-03] MEDS ORDERED: BUPRENORPHINE HCL 8 MG SL SCH (22:00)
[2019-04-03] MEDS: CELECOXIB 200 MG CAPSULE PO SCH (22:28)
[2019-04-03] MEDS: GABAPENTIN 300 MG CAPSULE (FP) PO SCH (22:29)
[2019-04-03] MEDS: oxyCODONE HCL 10 MG SUSTAINED ACTING TABLET PO SCH (22:30)
[2019-04-03] MEDS: SENNOSIDES/DOCUSATE COMBO (SENNA PLUS) TABLET (UD) PO SCH (22:30)
[2019-04-03] MEDS: ASCORBIC ACID 500 MG TABLET (FP) PO SCH (22:30)
[2019-04-04] MEDS: traMADol HCL 50 MG TABLET PO SCH ×2 (01:36→08:48)
[2019-04-04] MEDS: ACETAMINOPHEN 325 MG TABLET (FP) PO SCH ×4 (01:37→20:44)
[2019-04-04] MEDS: KETOROLAC TROMETHAMINE 30 MG/1 ML VIAL IVPUSH SCH ×2 (01:37→08:50)
[2019-04-04] MEDS: CEFAZOLIN 2 GM/D5W 2 GM/50 ML ML IVPB SCH ×2 (02:00→16:23)
[2019-04-04 08:02] LABS: CALCIUM 8.7 mg/dl (8.5-10); CREATININE 0.7 mg/dl (0.55-1.3); POTASSIUM 5.1 mmol/L (3.5-5.1)
[2019-04-04 08:04] LABS: HEMATOCRIT 35.8 % (32.4-45.2); HEMOGLOBIN 12.3 GM/dl (10.7-15.3); MCH 30.4 pg (25.7-33.7); MCHC 34.2 g/dl (32.0-36.0); MEAN CELL VOLUME 88.8 fl (80-96); MEAN PLT VOLUME 10.2 fl (7.5-11.1); PLATELET COUNT 188 K/MM3 (134-434); RBC 4.03 M/mm3 (3.60-5.2); RDW 12.9 % (11.6-15.6); WHITE BLOOD COUNT 6.8 K/mm3 (4.0-10.8)
[2019-04-04] MEDS: ASPIRIN 325 MG TABLET PO SCH (08:48)
[2019-04-04] MEDS: clonazePAM 0.5 MG TABLET PO SCH ×3 (09:06→22:01)
[2019-04-04] MEDS: ASCORBIC ACID 500 MG TABLET (FP) PO SCH ×2 (09:44→22:02)
[2019-04-04] MEDS: ESCITALOPRAM OXALATE 20 MG TABLET (FP) PO SCH (09:45)
[2019-04-04] MEDS: CELECOXIB 200 MG CAPSULE PO SCH ×2 (09:45→22:01)
[2019-04-04] MEDS: GABAPENTIN 300 MG CAPSULE (FP) PO SCH ×2 (09:45→22:03)
[2019-04-04] MEDS: PANTOPRAZOLE 40 MG TABLET (FP) PO SCH (09:45)
[2019-04-04] MEDS: SENNOSIDES/DOCUSATE COMBO (SENNA PLUS) TABLET (UD) PO SCH ×2 (09:45→22:02)
[2019-04-04] MEDS: MULTIVITAMINS (DAILY MVI) TABLET (FP) PO SCH (09:45)
[2019-04-04] MEDS: oxyCODONE HCL 10 MG SUSTAINED ACTING TABLET PO SCH ×2 (09:46→22:02)
[2019-04-04] MEDS ORDERED: oxyCODONE HCL 5 MG TABLET PO PRN (11:07)
--- NOTE | 2019-04-04 11:14 | PN ---
Progress Note, Physician Chief Complaint: s/p left total hip replacement under spinal anesthesia History of Present Illness: post op day one, paravertebral block for post op pain control. - Current Medication List Current Medications: Active Medications Acetaminophen (Tylenol -) 650 mg PO Q6H [facility] Stop: 04/06/19 19:59 Last Admin: 04/04/19 08:50 Dose: 650 mg Al Hydroxide/Mg Hydroxide (Mylanta Oral Suspension -) 30 ml PO Q4H PRN PRN Reason: DYSPEPSIA Ascorbic Acid (Vitamin C -) 500 mg PO BID [facility] Last Admin: 04/04/19 09:44 Dose: 500 mg Aspirin (Asa -) 325 mg PO DAILY@0800 [facility] Last Admin: 04/04/19 08:48 Dose: 325 mg Celecoxib (Celebrex -) 200 mg PO BID [facility] Last Admin: 04/04/19 09:45 Dose: 200 mg Clonazepam (Klonopin -) 1 mg PO TID [facility] Last Admin: 04/04/19 09:06 Dose: 1 mg Escitalopram Oxalate (Lexapro -) 20 mg PO DAILY [facility] Last Admin: 04/04/19 09:45 Dose: 20 mg Gabapentin (Neurontin -) 300 mg PO BID [facility] Stop: 04/06/19 21:59 Last Admin: 04/04/19 09:45 Dose: 300 mg Cefazolin Sodium/Dextrose (Ancef 2 Gm Premixed Ivpb -) 2 gm in 50 mls @ 100 mls /hr IVPB Q8H-IV [facility] Stop: 04/04/19 17:59 Last Admin: 04/04/19 02:00 Dose: 100 mls/hr Magnesium Hydroxide (Milk Of Magnesia -) 30 ml PO PRN PRN PRN Reason: CONSTIPATION Multivitamins/Minerals/Vitamin C (Tab-A-Vit -) 1 tab PO DAILY [facility] Last Admin: 04/04/19 09:45 Dose: 1 tab Ondansetron HCl (Zofran Injection) 4 mg IVPUSH Q6H PRN PRN Reason: NAUSEA Oxycodone HCl (Roxicodone -) 20 mg PO Q3H PRN PRN Reason: PAIN LEVEL 6-10 Oxycodone HCl (Roxicodone -) 10 mg PO Q3H PRN PRN Reason: PAIN LEVEL 1-5 Oxycodone HCl (Oxycontin -) 20 mg PO BID [facility] Stop: 04/07/19 11:07 Pantoprazole Sodium (Protonix -) 40 mg PO DAILY [facility] Last Admin: 04/04/19 09:45 Dose: 40 mg Senna/Docusate Sodium (Pericolace -) 2 tablet PO BID [facility] Last Admin: 04/04/19 09:45 Dose: 2 tablet - Objective Vital Signs: Vital Signs Temperature 98.3 F 04/04/19 10:00 Pulse Rate 78 04/04/19 10:00 Respiratory Rate 16 04/04/19 10:00 Blood Pressure 93/44 L 04/04/19 10:00 O2 Sat by Pulse Oximetry (%) 95 04/04/19 10:00 Constitutional: Yes: Well Nourished Cardiovascular: Yes: WNL Respiratory: Yes: WNL Gastrointestinal: Yes: WNL Labs: CBC, BMP 04/04/19 07:21 04/04/19 07:21 Assessment/Plan Patient expressed concern over anesthetic stating she felt she was undermedicated for the block and spinal. I explained to her the increase level of difficulty and risk when a patient is oversedated for the block and spinal. She expressed her pain control is not adequate. With her history of suboxone use , pain management would prove difficult. Will double the doses of opiod analgesics and add adjunct anagesics. Otherwise, dept of anesthesia will sign off care at this time.
[2019-04-04] MEDS: diazePAM 5 MG TABLET PO PRN ×2 (12:43→18:29)
[2019-04-04] MEDS: oxyCODONE HCL 5 MG TABLET PO PRN ×3 (12:49→20:44)
[2019-04-05] MEDS: ACETAMINOPHEN 325 MG TABLET (FP) PO SCH ×2 (03:40→07:58)
[2019-04-05] MEDS: oxyCODONE HCL 5 MG TABLET PO PRN (03:58)
[2019-04-05] MEDS: diazePAM 5 MG TABLET PO PRN (04:01)
[2019-04-05] MEDS: clonazePAM 0.5 MG TABLET PO SCH (06:29)
[2019-04-05] MEDS: ASPIRIN 325 MG TABLET PO SCH (07:58)
[2019-04-05 08:39] LABS: HEMATOCRIT 33.3 % (32.4-45.2); MCH 29.3 pg (25.7-33.7); MEAN CELL VOLUME 88.6 fl (80-96); MEAN PLT VOLUME 10.1 fl (7.5-11.1); PLATELET COUNT 202 K/MM3 (134-434); RBC 3.76 M/mm3 (3.60-5.2); RDW 13.1 % (11.6-15.6); WHITE BLOOD COUNT 9.8 K/mm3 (4.0-10.8)
--- NOTE | 2019-04-05 08:57 | PN ---
Progress Note (short form) - Note Progress Note: Pt seen and examined. Doing well. AVSS Selected Entries 04/05/19 06:00 Temperature 98.1 F Respiratory 18 Rate Blood Pressure 101/51 L O2 Sat by Pulse 95 Oximetry (%) Oxygen Delivery Room Air Method Laboratory Tests 04/04/19 04/04/19 04/05/19 07:21 07:21 07:30 WBC 6.8 9.8 Hgb 12.3 11.0 Hct 35.8 33.3 Plt Count 188 202 Sodium 135 L Potassium 5.1 Chloride 102 Carbon Dioxide 28 Anion Gap 5 L BUN 9.0 Creatinine 0.7 Est GFR (CKD-EPI)AfAm 126.49 Est GFR (CKD-EPI)NonAf 109.14 Random Glucose 162 H Calcium 8.7 Gen: NAD LLE: c/d/i, NVID A/P 38yo female s/p L ANATOLY PT/OOB D/C home today; d/u in office in 10-14 days
[2019-04-05] MEDS: oxyCODONE HCL 10 MG SUSTAINED ACTING TABLET PO SCH (09:25)
[2019-04-05] MEDS: GABAPENTIN 300 MG CAPSULE (FP) PO SCH (09:25)
[2019-04-05] MEDS: MULTIVITAMINS (DAILY MVI) TABLET (FP) PO SCH (09:25)
[2019-04-05] MEDS: PANTOPRAZOLE 40 MG TABLET (FP) PO SCH (09:25)
[2019-04-05] MEDS: SENNOSIDES/DOCUSATE COMBO (SENNA PLUS) TABLET (UD) PO SCH (09:25)
[2019-04-05] MEDS: CELECOXIB 200 MG CAPSULE PO SCH (09:26)
[2019-04-05] MEDS: ESCITALOPRAM OXALATE 20 MG TABLET (FP) PO SCH (09:26)
[2019-04-05] MEDS: ASCORBIC ACID 500 MG TABLET (FP) PO SCH (09:26)
--- NOTE | 2019-04-05 09:31 | DS ---
Physical Examination Vital Signs: Vital Signs Temperature 98.1 F 04/05/19 06:00 Pulse Rate 69 04/05/19 06:00 Respiratory Rate 18 04/05/19 08:32 Blood Pressure 101/51 L 04/05/19 06:00 O2 Sat by Pulse Oximetry (%) 95 04/05/19 08:32 Labs: CBC, BMP 04/05/19 07:30 04/04/19 07:21 Discharge Summary Reason For Visit: AVN OF THE LEFT HIP Current Active Problems Osteonecrosis of left hip (Acute) Procedures: Principal: LEFT CHIKIS ANATOLY Hospital Course: Admitted for elective surgery. Procedure performed without complications. Pt received postoperative antibiotic prophylaxis and DVT ppx. Ambulated with physical therapy. Stable for discharge home with outpatient followup. Condition: Stable - Instructions Diet, Activity, Other Instructions: Dr Bahena - Hip Replacement Instructions Keep the Aquacel dressing on until removed by Dr. Bahena in 10-14 days - it is antibacterial and waterproof and you can shower with it on. Call the office for a follow-up appointment with Dr. Bahena in 10-14 days. Take one Aspirin 325mg daily for 6 weeks to prevent blood clots in your legs. Take one Pantoprazole 40mg daily for 6 weeks to protect against heartburn and ulcers. Take Cephalexin (antibiotic) 3x/day for 10 days to help prevent skin infection. Take Celebrex 200mg twice daily for 30 days to reduce swelling and inflammation. Take a multivitamin, stool softener and extra Vitamin C supplement daily. For pain: Take 1 Tramadol 50mg tablet every 4 hours as a baseline medication. Take Oxycodone 10mg 1-2 tablets every 3 hours as needed for pain. Take Valium 5mg every 4 hours as needed CALL AND MAKE A FOLLOW UP APPOINTMENT WITH PAIN MANAGEMENT AT [facility]ICATION DOSE ADJUSTMENTS AND/OR REFILLS - DO THIS SUNDAY -DON'T WAIT UNTIL THE MEDICATIONS RUN OUT! Activity: You can put as much weight on the operative leg as you want. For the first 6 weeks, all you need to do is walk around the house, go up/down stairs, and sit down/get up. After 6 weeks when everything is healed (and bone has grown into the implant) you will be sent for more intensive outpatient physical therapy. Always use a walker or cane for balance and to prevent falls. Expect to see swelling / bruising from the operative site all the way down to your toes. Wear the Compression stocking on the operative side during the day to minimize how much swelling there is in your foot/ankle. Don't wear the stocking at night. You don't have to wear the stocking on the other side. Disposition: [facility]/HOME HEALTH CARE - Home Medications Comprehensive Discharge Medication List: Ambulatory Orders clonazePAM [Klonopin -] 1 mg PO TID 03/03/17 Escitalopram Oxalate [Lexapro -] 20 mg PO DAILY #30 tablet 06/04/17 Ascorbic Acid [Vitamin C -] 500 mg PO BID #60 tablet 04/05/19 Aspirin [ASA -] 325 mg PO DAILY@0800 #40 tablet 04/05/19 Celecoxib [CeleBREX -] 200 mg PO BID #60 capsule 04/05/19 Cephalexin Monohydrate [Keflex -] 500 mg PO TID #30 capsule 04/05/19 Diazepam [Valium] 5 mg PO Q4H PRN #30 tablet MDD 4 04/05/19 Multivitamins [Multivit ([facility])] 1 tab PO DAILY #40 tab 04/05/19 Oxycodone HCl 1 - 2 tab PO Q3H PRN #120 tablet MDD 12 04/05/19 Pantoprazole Sodium [Protonix -] 40 mg PO DAILY #40 tablet.ec 04/05/19 Sennosides/Docusate Sodium [Pericolace -] 2 tablet PO BID #160 tablet 04/05/19 traMADol HCL [Ultram -] 50 mg PO Q4H #120 tablet MDD 6 04/05/19
[2019-04-05 11:40] VITALS: BP 107/50; PULSE 60; TEMP 97.9
--- NOTE | 2019-04-09 16:12 | PATH ---
Surgical Pathology Report Patient Name: PHILLIP CARMEN Med. Rec. #: [id number] /Age/Gender: 1980 (Age: 38) / F Account: [id number] Location: [facility] Taken: 04/03/2019 Received: 04/03/2019 Reported: 04/09/2019 Physicians: Titi Bahena M.D. Specimen(s) Received LEFT FEMORAL HEAD Clinical History Avascular necrosis of the left hip Final Diagnosis FEMORAL HEAD, LEFT, TOTAL HIP REPLACEMENT: FEMORAL HEAD SHOWING AVASCULAR NECROSIS AND DEGENERATIVE CHANGES. Electronically Signed Tiffanie Perla M.D. Gross Description Received in formalin labeled "left femoral head," is a 4.6 x 4.6 x 3.9 cm femoral head with a 0.8 cm in length portion of femoral neck attached. The margin of resection is smooth. The articular cartilage is malone-yellow, nodular and focally lifting away from the underlying bone. There is a 0.9 cm in greatest dimension area of eburnation present. The underlying trabecular bone appears focally necrotic. [employer] sections are submitted in one cassette, following decalcification. /04/04/2019 [facility]04/04/2019
== END 2019-04-05 10:26 | disposition home health service (06) | DRG 301 ==
LOC: FM/S 07:54
PROVIDERS: ADMIT Student in an Organized Health Care Education/Training Program; ATTEND Student in an Organized Health Care Education/Training Program
PROC: 8E0W0CZ Robotic Assisted Procedure of Trunk Region, Open Approach (ICD-10-PCS; 2019-04-03)
PROC: 0SRB03A Replacement of Left Hip Joint with Ceramic Synthetic Substitute, Uncemented, Open Approach (ICD-10-PCS; principal; 2019-04-03 10:42)
DX: M16.12 Unilateral primary osteoarthritis, left hip (principal); F17.210 Nicotine dependence, cigarettes, uncomplicated
CPT/HCPCS: 36415; 73502-TC-LT-FY; 80048; 84703; 85027; 88305-TC; 88311-TC; 94760; 97116-GP; 97161-GP; J0131; J1100

== ENCOUNTER 2022-01-13 19:33 | Inpatient (IN) | payer OTHER ==
[2022-01-13 20:03] VITALS: BP 108/63; PULSE 97; TEMP 97.2; BMI 36.3
[2022-01-17] MEDS ORDERED: BUPRENORPHINE HCL 150 MCG, BUPRENORPHINE HCL 75 MCG BC PRN (15:24)
[2022-01-17] MEDS ORDERED: BENZOCAINE/MENTHOL (CHLORASEPTIC ) LOZENGE MM PRN (15:24)
[2022-01-17] MEDS ORDERED: LOPERAMIDE HCL 2 MG CAPSULE PO PRN (15:24)
[2022-01-17] MEDS ORDERED: MAG HYDROX/AL HYDROX/SIMETH 30 ML UNIT-DOSE CUP PO PRN (15:24)
[2022-01-17] MEDS ORDERED: METHOCARBAMOL 500 MG TABLET PO PRN (15:24)
[2022-01-17] MEDS ORDERED: ACETAMINOPHEN 325 MG TABLET (FP) PO PRN ×2 (15:24)
[2022-01-17] MEDS ORDERED: BUPRENORPHINE HCL 150 MCG, BUPRENORPHINE HCL 75 MCG BC ONE (15:24)
[2022-01-17] MEDS ORDERED: DICYCLOMINE HCL 10 MG CAPSULE PO PRN (15:24)
[2022-01-17] MEDS ORDERED: MAGNESIUM CITRATE 300 ML BOTTLE PO PRN (15:24)
[2022-01-17] MEDS ORDERED: ONDANSETRON *ODT* 4 MG TABLET SL PRN (15:24)
[2022-01-17] MEDS ORDERED: diazePAM 5 MG TABLET PO PRN (15:24)
[2022-01-17] MEDS ORDERED: NICOTINE 10 MG CARTRIDGE (INHALER) IH PRN (15:24)
[2022-01-17] MEDS ORDERED: cloNIDine HCL 0.1 MG TABLET PO ONE (15:24)
[2022-01-17] MEDS ORDERED: IBUPROFEN 400 MG TABLET (FP) PO PRN (15:24)
[2022-01-17] MEDS ORDERED: MAGNESIUM HYDROX 2400MG/30ML ORAL SUSPENSION 30 ML CUP PO PRN (15:24)
[2022-01-17] MEDS ORDERED: BISMUTH SUBSALICYLATE 524 MG/30 ML PO PRN (15:24)
[2022-01-17] MEDS ORDERED: NICOTINE 14 MG/24 HOURS TOPICAL PATCH TD SCH (15:30)
[2022-01-17] MEDS ORDERED: PRENATAL VITAMINS W/ FOLIC ACID TABLET (FP) PO SCH (15:30)
[2022-01-17] MEDS ORDERED: clonazePAM 0.5 MG ODT TABLETS SL SCH (15:45)
[2022-01-17] MEDS ORDERED: hydrOXYzine PAMOATE 25 MG CAPSULE (FP) PO SCH (18:00)
[2022-01-17] MEDS ORDERED: cloNIDine HCL 0.1 MG TABLET PO PRN (19:25)
[2022-01-18] MEDS ORDERED: BUPRENORPHINE HCL 150 MCG, BUPRENORPHINE HCL 75 MCG BC PRN
[2022-01-21] MEDS ORDERED: BUPRENORPHINE/NALOXONE 8 MG/2 MG FILM PACKET SL ONE (06:00)
== END 2022-01-14 08:05 | disposition home or self-care (01) | DRG 773 ==
LOC: YASAS 19:33 → Y3N 23:49
PROVIDERS: ADMIT Allergy & Immunology; ATTEND Allergy & Immunology
PROC: HZ2ZZZZ Detoxification Services for Substance Abuse Treatment (ICD-10-PCS; principal; 2022-01-13)
DX: F11.23 Opioid dependence with withdrawal (principal); F10.230 Alcohol dependence with withdrawal, uncomplicated; F17.210 Nicotine dependence, cigarettes, uncomplicated; Z88.0 Allergy status to penicillin; Z91.013 Allergy to seafood
CPT/HCPCS: 81025; 93005; 93010

== ENCOUNTER 2022-01-17 13:19 | Inpatient (IN) | payer OTHER ==
[2022-01-17 17:49] VITALS: BMI 36.5
[2022-01-17] MEDS ORDERED: METHOCARBAMOL 500 MG TABLET PO PRN (19:26)
[2022-01-17] MEDS ORDERED: diazePAM 5 MG TABLET PO PRN (19:26)
[2022-01-17] MEDS ORDERED: NICOTINE 10 MG CARTRIDGE (INHALER) IH PRN (19:26)
[2022-01-17] MEDS ORDERED: cloNIDine HCL 0.1 MG TABLET PO ONE ×2 (19:26→21:07)
[2022-01-17] MEDS ORDERED: BUPRENORPHINE HCL 150 MCG, BUPRENORPHINE HCL 75 MCG BC PRN ×2 (19:26→21:07)
[2022-01-17] MEDS ORDERED: BENZOCAINE/MENTHOL (CHLORASEPTIC ) LOZENGE MM PRN (19:26)
[2022-01-17] MEDS ORDERED: ONDANSETRON *ODT* 4 MG TABLET SL PRN (19:26)
[2022-01-17] MEDS ORDERED: BISMUTH SUBSALICYLATE 524 MG/30 ML PO PRN (19:26)
[2022-01-17] MEDS ORDERED: DICYCLOMINE HCL 10 MG CAPSULE PO PRN (19:26)
[2022-01-17] MEDS ORDERED: MAG HYDROX/AL HYDROX/SIMETH 30 ML UNIT-DOSE CUP PO PRN (19:26)
[2022-01-17] MEDS ORDERED: LOPERAMIDE HCL 2 MG CAPSULE PO PRN (19:26)
[2022-01-17] MEDS ORDERED: MAGNESIUM CITRATE 300 ML BOTTLE PO PRN (19:26)
[2022-01-17] MEDS ORDERED: IBUPROFEN 400 MG TABLET (FP) PO PRN (19:26)
[2022-01-17] MEDS ORDERED: ACETAMINOPHEN 325 MG TABLET (FP) PO PRN ×2 (19:26)
[2022-01-17] MEDS ORDERED: MAGNESIUM HYDROX 2400MG/30ML ORAL SUSPENSION 30 ML CUP PO PRN (19:26)
[2022-01-17] MEDS ORDERED: BUPRENORPHINE HCL 150 MCG, BUPRENORPHINE HCL 75 MCG BC ONE ×2 (19:26→21:07)
[2022-01-17] MEDS ORDERED: PRENATAL VITAMINS W/ FOLIC ACID TABLET (FP) PO SCH (19:30)
[2022-01-17] MEDS ORDERED: BUPRENORPHINE HCL 150 MCG FILM BC ONE (21:50)
[2022-01-17] MEDS ORDERED: BUPRENORPHINE HCL 75 MCG FILM BC ONE (21:51)
[2022-01-17] MEDS ORDERED: THIAMINE HCL 100 MG TABLET (FP) PO SCH (22:00)
[2022-01-17] MEDS ORDERED: PATIENT'S OWN MEDICATION (NON-FORMULARY) (Clonazepam [Klonopin -] 0.5 MG Tablet) PO SCH (22:00)
[2022-01-17] MEDS ORDERED: hydrOXYzine PAMOATE 25 MG CAPSULE (FP) PO SCH (22:00)
[2022-01-17] MEDS ORDERED: MELATONIN 5 MG TABLETS PO SCH (22:00)
[2022-01-17] MEDS ORDERED: cloNIDine HCL 0.1 MG TABLET PO PRN (23:26)
[2022-01-17] MEDS: diazePAM 5 MG TABLET PO PRN (23:26)
[2022-01-18] MEDS ORDERED: BUPRENORPHINE HCL 150 MCG, BUPRENORPHINE HCL 75 MCG BC PRN ×2
[2022-01-18] MEDS ORDERED: BUPRENORPHINE HCL 150 MCG FILM BC ONE ×3 (05:01→16:47)
[2022-01-18] MEDS ORDERED: BUPRENORPHINE HCL 75 MCG FILM BC ONE ×3 (05:02→16:48)
[2022-01-18] MEDS ORDERED: BUPRENORPHINE HCL 150 MCG, BUPRENORPHINE HCL 75 MCG BC SCH (06:00)
[2022-01-18] MEDS: BUPRENORPHINE HCL 150 MCG, BUPRENORPHINE HCL 75 MCG BC SCH ×2 (06:49→18:07)
[2022-01-18] MEDS ORDERED: ACETAMINOPHEN 325 MG TABLET (FP) PO PRN ×2 (08:24)
[2022-01-18] MEDS ORDERED: BISMUTH SUBSALICYLATE 262 MG/15 ML BTL PO PRN (08:24)
[2022-01-18] MEDS ORDERED: ONDANSETRON *ODT* 4 MG TABLET SL PRN (08:24)
[2022-01-18] MEDS ORDERED: MAG HYDROX/AL HYDROX/SIMETH 30 ML UNIT-DOSE CUP PO PRN (08:24)
[2022-01-18] MEDS ORDERED: NALOXONE HCL 0.4 MG/ML VIAL IM PRN (08:24)
[2022-01-18] MEDS ORDERED: MAGNESIUM HYDROX 2400MG/30ML ORAL SUSPENSION 30 ML CUP PO PRN (08:24)
[2022-01-18] MEDS ORDERED: MAGNESIUM CITRATE 300 ML BOTTLE PO PRN (08:24)
[2022-01-18] MEDS ORDERED: LOPERAMIDE HCL 2 MG CAPSULE PO PRN (08:24)
[2022-01-18] MEDS ORDERED: IBUPROFEN 400 MG TABLET (FP) PO PRN (08:24)
[2022-01-18] MEDS ORDERED: DICYCLOMINE HCL 10 MG CAPSULE PO PRN (08:24)
[2022-01-18] MEDS ORDERED: BENZOCAINE/MENTHOL (CHLORASEPTIC ) LOZENGE MM PRN (08:24)
[2022-01-18] MEDS: diazePAM 5 MG TABLET PO PRN ×3 (09:19→20:27)
[2022-01-18] MEDS: NICOTINE 10 MG CARTRIDGE (INHALER) IH PRN ×2 (09:20→18:06)
[2022-01-18] MEDS: METHOCARBAMOL 500 MG TABLET PO PRN (10:16)
[2022-01-18] MEDS: PRENATAL VITAMINS W/ FOLIC ACID TABLET (FP) PO SCH (10:18)
[2022-01-18] MEDS: hydrOXYzine PAMOATE 25 MG CAPSULE (FP) PO SCH ×4 (10:18→22:34)
[2022-01-18] MEDS: MELATONIN 5 MG TABLETS PO SCH (22:34)
[2022-01-18] MEDS: THIAMINE HCL 100 MG TABLET (FP) PO SCH (22:35)
[2022-01-19] MEDS ORDERED: BUPRENORPHINE HCL 450 MCG FILM BC SCH (06:00)
[2022-01-19] MEDS: hydrOXYzine PAMOATE 25 MG CAPSULE (FP) PO SCH ×5 (06:23→22:03)
[2022-01-19] MEDS: BUPRENORPHINE HCL 450 MCG FILM BC SCH ×2 (06:24→18:14)
[2022-01-19] MEDS: ESCITALOPRAM OXALATE 20 MG TABLET PO SCH (09:22)
[2022-01-19] MEDS: diazePAM 5 MG TABLET PO PRN ×2 (09:22→15:51)
[2022-01-19] MEDS: PRENATAL VITAMINS W/ FOLIC ACID TABLET (FP) PO SCH (09:22)
[2022-01-19] MEDS: METHOCARBAMOL 500 MG TABLET PO PRN ×2 (09:22→22:03)
[2022-01-19 13:07] LABS: SARS-CoV-2 NAA Not Detected (Not Detected)
[2022-01-19] MEDS: NICOTINE 10 MG CARTRIDGE (INHALER) IH PRN (15:50)
[2022-01-19] MEDS: THIAMINE HCL 100 MG TABLET (FP) PO SCH (22:03)
[2022-01-19] MEDS: MELATONIN 5 MG TABLETS PO SCH (22:03)
[2022-01-19] MEDS: cloNIDine HCL 0.1 MG TABLET PO PRN (22:07)
[2022-01-20] MEDS ORDERED: BUPRENORPHINE/NALOXONE 4 MG/1 MG FILM PACKET SL SCH (06:00)
[2022-01-20] MEDS: BUPRENORPHINE/NALOXONE 4 MG/1 MG FILM PACKET SL SCH ×2 (06:25→19:06)
[2022-01-20] MEDS: hydrOXYzine PAMOATE 25 MG CAPSULE (FP) PO SCH ×5 (06:25→22:29)
[2022-01-20] MEDS: METHOCARBAMOL 500 MG TABLET PO PRN (10:00)
[2022-01-20] MEDS: PRENATAL VITAMINS W/ FOLIC ACID TABLET (FP) PO SCH (10:00)
[2022-01-20] MEDS: ESCITALOPRAM OXALATE 20 MG TABLET PO SCH (10:00)
[2022-01-20] MEDS: clonazePAM 0.5 MG ODT TABLETS SL SCH ×3 (10:02→22:27)
[2022-01-20] MEDS: NICOTINE 10 MG CARTRIDGE (INHALER) IH PRN (13:26)
[2022-01-20] MEDS ORDERED: TRIMETHOBENZAMIDE HCL 200MG/2ML INJ IM PRN (21:08)
[2022-01-20] MEDS: cloNIDine HCL 0.1 MG TABLET PO PRN (22:27)
[2022-01-20] MEDS: THIAMINE HCL 100 MG TABLET (FP) PO SCH (22:29)
[2022-01-20] MEDS: MELATONIN 5 MG TABLETS PO SCH (22:29)
[2022-01-21] MEDS: METHOCARBAMOL 500 MG TABLET PO PRN (01:35)
[2022-01-21] MEDS: hydrOXYzine PAMOATE 25 MG CAPSULE (FP) PO SCH ×2 (05:07→09:40)
[2022-01-21] MEDS ORDERED: BUPRENORPHINE/NALOXONE 8 MG/2 MG FILM PACKET SL ONE ×2 (06:00)
[2022-01-21] MEDS ORDERED: clonazePAM 0.5 MG ODT TABLETS SL ONE (09:08)
[2022-01-21 09:16] VITALS: BP 135/77; PULSE 81; TEMP 98
[2022-01-21] MEDS: ESCITALOPRAM OXALATE 20 MG TABLET PO SCH (09:40)
[2022-01-21] MEDS: PRENATAL VITAMINS W/ FOLIC ACID TABLET (FP) PO SCH (09:40)
== END 2022-01-21 10:09 | disposition home or self-care (01) | DRG 773 ==
LOC: YASAS 13:19 → Y6N 17:41
PROVIDERS: ADMIT Allergy & Immunology; ATTEND Allergy & Immunology
PROC: HZ2ZZZZ Detoxification Services for Substance Abuse Treatment (ICD-10-PCS; principal; 2022-01-17)
DX: F11.23 Opioid dependence with withdrawal (principal); F10.230 Alcohol dependence with withdrawal, uncomplicated; F13.20 Sedative, hypnotic or anxiolytic dependence, uncomplicated; F17.210 Nicotine dependence, cigarettes, uncomplicated; F19.24 Other psychoactive substance dependence with psychoactive substance-induced mood disorder; F32.A Depression, unspecified; F43.10 Post-traumatic stress disorder, unspecified; G62.9 Polyneuropathy, unspecified; B18.2 Chronic viral hepatitis C; M41.9 Scoliosis, unspecified; Z88.0 Allergy status to penicillin; Z91.013 Allergy to seafood
CPT/HCPCS: C9803-CS; J0735; U0003; U0005